=== PATIENT | male | born 1950 | race Caucasian/White ===

== ENCOUNTER → 2016-05-16 | Outpatient (CLI) | payer OTHER ==
[~2016-05-16] MED LIST: CYAN10005 PO; HYDR-4330 PO; NRN/300 PO; OMEG10007 PO
--- NOTE | 2016-05-16 11:13 | DIAGNOSTIC IMAGING REPORT ---
KUB CLINICAL HISTORY: Nephrolithiasis. COMPARISON STUDY: CT of the abdomen and pelvis December 24, 2015 and KUB January 10, 2016. FINDINGS: A few left renal calculi measure up to 6 mm. There is a punctate calculus within the upper pole of the right kidney. No ureteral calculi are identified. Pelvic calcifications represent phleboliths. There is a bone island within the medial right iliac bone. Bowel gas pattern is normal. IMPRESSION: 1. No change in left-sided nephrolithiasis with a suspected punctate right renal calculus. 2. No ureteral calculi identified. Electronically signed by: Johnson Moctezuma M.D. 05/16/2016 11:12 AM Dictated Date/Time: 05/16/2016 11:02 AM
== END | disposition home or self-care (01) ==
LOC: C.RAD 10:13
PROVIDERS: ATTEND Urology
DX: N20.0 Calculus of kidney (principal)

== ENCOUNTER → 2016-05-29 | Outpatient (CLI) | payer OTHER ==
[~2016-05-29] MED LIST changes: +ACET-1256 PO; +CIPR-255 PO; +OXYC-57 PO; +PHEN95TA14 PO
== END | disposition home or self-care (01) ==
LOC: C.PATHSPEC 16:56
PROVIDERS: ATTEND Urology
DX: R31.9 Hematuria, unspecified (principal)

== ENCOUNTER → 2016-10-30 | Outpatient (CLI) | payer OTHER ==
[~2016-10-30] MED LIST changes: -ACET-1256 PO; -CIPR-255 PO; -PHEN95TA14 PO
--- NOTE | 2016-10-30 15:42 | DIAGNOSTIC IMAGING REPORT ---
KUB CLINICAL HISTORY: Ureteral calculus. Nephrolithiasis. Hematuria. COMPARISON STUDY: 05/16/2016 FINDINGS: There is no pathologic bowel dilatation. The renal shadows are partially obscured by overlying bowel gas and fecal material. Punctate lower pole renal calculi are suspected. There is a new 5 mm left pelvic basin calcification, suspicious for a distal left ureteral calculus. IMPRESSION: 1. Bilateral nephrolithiasis 2. New 5 mm left pelvic basin calcification, suspicious for a distal left ureteral calculus Electronically signed by: Chucho Cabello M.D. 10/30/2016 3:40 PM Dictated Date/Time: 10/30/2016 3:38 PM
== END | disposition home or self-care (01) ==
LOC: C.RAD 15:21
PROVIDERS: ATTEND Urology
DX: N20.0 Calculus of kidney (principal); N20.1 Calculus of ureter

== ENCOUNTER → 2016-12-02 | Outpatient (CLI) | payer OTHER ==
--- NOTE | 2016-12-02 17:06 | DIAGNOSTIC IMAGING REPORT ---
CHEST 2 VIEWS ROUTINE CLINICAL HISTORY: Preoperative evaluation. Nephrolithiasis. COMPARISON STUDY: Chest radiograph August 14, 2015. FINDINGS: Lung volumes are normal. No pneumothorax or pleural effusion is present. Minimal left basilar opacity favors atelectasis. There is no evidence of pulmonary edema. Cardiomediastinal silhouette is normal. IMPRESSION: No acute cardiopulmonary findings. Electronically signed by: Johnson Moctezuma M.D. 12/02/2016 5:04 PM Dictated Date/Time: 12/02/2016 5:02 PM
== END | disposition home or self-care (01) ==
LOC: C.CPL 15:30
PROVIDERS: ATTEND Urology
DX: N20.0 Calculus of kidney (principal)

== ENCOUNTER → 2016-12-02 | Outpatient (CLI) | payer OTHER ==
--- NOTE | 2016-12-02 12:42 | DIAGNOSTIC IMAGING REPORT ---
KUB CLINICAL HISTORY: 66 years-old Male presenting with N20.1 Ureteral stoneRAD. TECHNIQUE: Single supine view of the abdomen was obtained. COMPARISON: 10/30/2016. FINDINGS: Mild stool burden and bowel gas degrade evaluation of the renal shadows. Allowing for this, the previously noted calculus at the lower pole of the left kidney is again demonstrated, unchanged in position. Previously noted calculus in the region of the distal left ureter is unchanged in position. The remaining calcifications in the pelvis are consistent with phleboliths when correlating to prior CT from 12/24/2015. No right renal calculi are evident radiographically. A bone island is noted in the right ilium subjacent to the sacroiliac joint. IMPRESSION: 1. Unchanged position of the distal left ureteral calculus. 2. Left nephrolithiasis. Right renal calculi not radiographically apparent possibly secondary to bowel gas and stool. Electronically signed by: Jorje Walden M.D. 12/02/2016 12:41 PM Dictated Date/Time: 12/02/2016 12:36 PM
[2016-12-02 16:41] LABS: BASO % 0.6 %; BASO ABS # 0.04 K/uL (0-0.2); COMPLETE YES; HEMATOCRIT 45.7 % (42-52); IG% 0.3 %; LYMPH % 30.1 %; LYMPH ABS # 1.89 K/uL (1.2-3.4); MEAN CELL VOLUME 90.3 fL (80-100); MEAN CORPUSCULAR HGB CONC 34.4 g/dl (32-36); MEAN PLATELET VOLUME 9.5 fL (7.4-10.4); MONO % 6.1 %; NEUT % 61.9 %; PLATELET COUNT 246 K/uL (130-400); RED BLOOD COUNT 5.06 M/uL (4.7-6.1); WHITE BLOOD COUNT 6.27 K/uL (4.8-10.8)
[2016-12-02 17:06] LABS: BLOOD UREA NITROGEN 14 mg/dl (7-18); BUN/CREATININE RATIO 14.2 (10-20); CALCIUM 9.6 mg/dl (8.5-10.1); CARBON DIOXIDE 29 mmol/L (21-32); CHLORIDE 105 mmol/L (98-107); GLUCOSE 153 mg/dl (70-99); POTASSIUM 3.9 mmol/L (3.5-5.1); SODIUM 142 mmol/L (136-145)
== END | disposition home or self-care (01) ==
LOC: C.RAD 12:18
PROVIDERS: ATTEND Urology
DX: N20.1 Calculus of ureter (principal); N20.0 Calculus of kidney

== ENCOUNTER → 2016-12-06 | Day surgery (SDC) | payer OTHER ==
[2016-12-05 08:22] VITALS: Ht 185.4 cm; Wt 79.5 kg
[~2016-12-06] VITALS: Ht 185.4 cm; Wt 79.5 kg
[~2016-12-06] MED LIST changes: +ACET-1256 PO; +ATROPINE SULFATE 0.1 MG/ML 5ML SYR IV PRN; +CIPR-255 PO; +CIPROFLOXACIN 400MG / D5W IV SCH; +DEXAMETHASONE SOD INJ 4 MG/ML VIAL ONE; +EpHEDrine SULFATE INJ 50 MG/ML AMP IV PRN; +EpHEDrine SULFATE INJ 50 MG/ML AMP ONE; +FENTANYL CITRATE INJ 50 MCG/1 ML 2 ML VIAL IV PRN; +FENTANYL CITRATE INJ 50 MCG/1 ML 2 ML VIAL ONE; -HYDR-4330 PO; +LIDOCAINE HCL 2% 2 ML VIAL (20MG/ML) ONE; +ONDANSETRON INJ 2 MG/ML 2 ML VIAL IV PRN; +ONDANSETRON INJ 2 MG/ML 2 ML VIAL ONE; +PHEN95TA14 PO; +PROPOFOL IV EMULSION 10 MG/ML 20 ML VIAL IV ONE; +SODIUM CHLORIDE 0.9% INJ 10 ML VIAL ONE
--- NOTE | 2016-12-06 12:07 | History & Physical Bridge - SC ---
H&P Re-Evaluation Bridge Note: I have examined the patient, reviewed the History & Physical and in the interval since the performance of the History & Physical I have noted the following changes of clinical significance: No changes noted
--- NOTE | 2016-12-06 12:15 | DIAGNOSTIC IMAGING REPORT ---
KUB HISTORY: Follow-up study in a patient with nephrolithiasis N20.0 [id number] COMPARISON: KUB 12/02/2016, CT 12/24/2015. FINDINGS: The bowel gas pattern is non-obstructive. There is no organomegaly. Left-sided nephrolithiasis redemonstrated. Previously noted 6 mm calcification of the left hemipelvis correlating with distal left ureteral calculus is unchanged. No new ureteral calculi identified. Multiple pelvic phleboliths redemonstrated. No pneumoperitoneum or pneumatosis. No fracture. IMPRESSION: 1. Unchanged position of distal left ureteral calculus. 2. Left-sided nephrolithiasis redemonstrated Electronically signed by: Catarino Dang M.D. 12/06/2016 12:14 PM Dictated Date/Time: 12/06/2016 12:11 PM
--- NOTE | 2016-12-06 13:28 | [facility] Post Operative Brief Note ---
Immediate Operative Summary Operative Date Dec 06, 2016. Pre-Operative Diagnosis Left Ureteral Stone Post-Operative Diagnosis Same Procedure(s) Performed Left Extracorporeal Shock Wave Lithotripsy Surgeon Dr. Marcus Rocket Engine Tester Surgeon(s) None Estimated Blood Loss None Findings distal l stone Specimens None
--- NOTE | 2016-12-06 13:30 | Discharge Instructions-SurgCtr ---
Discharge Instructions Date of Service Dec 06, 2016. Visit Reason for Visit: Stones Discharge Discharge Diagnosis / Problem: post op l eswl Discharge Goals Goal(s): Increase independence, Improve disease control Medications Stopped Medications Name(s): Stopped taking fish oil more than 3 days ago. Activity Recommendations Activity Limitations: per Instructions/Follow-up section (no driving on narcotics) Anesthesia . Post Anesthesia Instructions: If you have had General Anesthesia or IV Sedation: * Do not drive today. * Resume driving when surgeon permits. * Do not make important decisions or sign legal documents today. * Call surgeon for: 1. Temperature elevations greater than 101 degrees F. 2. Uncontrollable pain. 3. Excessive bleeding. 4. Persistent nausea and vomiting. 5. Medication intolerance (nausea, vomiting or rash). * For nausea and vomiting use only clear liquids such as: tea, soda, bouillon until nausea subsides, then gradually increase diet as tolerated. * If you have any concerns or questions, call your surgeon's office. If physician is unavailable and it is an emergency, call 911 or go to the nearest emergency room. . Diet Recommendations Home Diet: resume previous diet Procedures Procedures Performed: Left Extracorporeal Shock Wave Lithotripsy Pending Studies Studies pending at discharge: no Medical Emergencies . Who to Call and When: Medical Emergencies: If at any time you feel your situation is an emergency, please call 911 immediately. . Non-Emergent Contact Non-Emergency issues call your: Urologist Call Non-Emergent contact if: temperature is above 101 . . "Provider Documentation" section prepared by Bandar Marcus. .
--- NOTE | 2016-12-06 14:09 | Anesthesia Progress Nt - [facility] ---
Anesthesia Post Op Note Date & Time Dec 06, 2016 at 14:08 Vital Signs Pain Intensity: 0 Vital Signs Past 12 Hours Date Time Temp Pulse Resp B/P (MAP) Pulse Ox O2 Delivery O2 Flow Rate FiO2 12/06/16 13:46 36.3 61 12 127/88 97 Mask 6 12/06/16 11:07 36.3 62 18 153/85 (107) 95 Room Air Notes Mental Status: alert / awake / arousable, participated in evaluation Pt Amnestic to Procedure: Yes Nausea / Vomiting: adequately controlled Pain: adequately controlled Airway Patency, RR, SpO2: stable & adequate BP & HR: stable & adequate Hydration State: stable & adequate Anesthetic Complications: no major complications apparent
[2016-12-06 14:41] VITALS: TEMP 36.4
[2016-12-06 14:58] VITALS: BP 128/90; PULSE 72; O2SAT 95
--- NOTE | 2016-12-06 15:34 | OPERATIVE REPORT ---
DATE OF OPERATION: 12/06/2016 PREOPERATIVE DIAGNOSIS: Left distal ureteral stone. POSTOPERATIVE DIAGNOSIS: Same. PROCEDURE PERFORMED: Left ESWL. SURGEON: Dr. Marcus. ANESTHESIA: General. INDICATIONS: The patient is a 66-year-old male with a 6-7 mm distal left ureteral stone who presented for lithotripsy. DESCRIPTION OF PROCEDURE: He was taken to the operating room and placed in the supine position. The stone was localized. He had been given antibiotics and had Venodyne stockings placed. After the stone was visualized from above the head was placed above and he received 3000 shocks, approximately half at level 6. The stone was still visible towards the end of the procedure. At the end of the procedure, the patient was transferred to the recovery room in stable condition. I attest to the content of the Intraoperative Record and any orders documented therein. Any exception s are noted below.
== END | disposition home or self-care (01) ==
LOC: C.RAD1850 10:22 → X.SURG 10:22
PROVIDERS: ATTEND Urology
DX: N20.1 Calculus of ureter (principal); N20.0 Calculus of kidney; Z82.49 Family history of ischemic heart disease and other diseases of the circulatory system; Z80.9 Family history of malignant neoplasm, unspecified; Z87.891 Personal history of nicotine dependence

== ENCOUNTER → 2016-12-18 | Outpatient (CLI) | payer OTHER ==
[~2016-12-18] MED LIST changes: -ATROPINE SULFATE 0.1 MG/ML 5ML SYR IV PRN; -CIPR-255 PO; -CIPROFLOXACIN 400MG / D5W IV SCH; -DEXAMETHASONE SOD INJ 4 MG/ML VIAL ONE; -EpHEDrine SULFATE INJ 50 MG/ML AMP IV PRN; -EpHEDrine SULFATE INJ 50 MG/ML AMP ONE; -FENTANYL CITRATE INJ 50 MCG/1 ML 2 ML VIAL IV PRN; -FENTANYL CITRATE INJ 50 MCG/1 ML 2 ML VIAL ONE; -LIDOCAINE HCL 2% 2 ML VIAL (20MG/ML) ONE; -ONDANSETRON INJ 2 MG/ML 2 ML VIAL IV PRN; -ONDANSETRON INJ 2 MG/ML 2 ML VIAL ONE; -PHEN95TA14 PO; -PROPOFOL IV EMULSION 10 MG/ML 20 ML VIAL IV ONE; -SODIUM CHLORIDE 0.9% INJ 10 ML VIAL ONE
--- NOTE | 2016-12-18 13:27 | DIAGNOSTIC IMAGING REPORT ---
KUB CLINICAL HISTORY: N20.0 [id number] COMPARISON STUDY: 12/06/2016 FINDINGS: There is no pathologic bowel dilatation. There is moderate debris within the stomach. The renal shadows are largely obscured overlying bowel gas and fecal material. Punctate bilateral renal calculi are suspected. The ovoid 7 mm left pelvic basin calcification remains unchanged in position. This is previously felt to represent a distal left ureteral calculus. Other pelvic basin calcifications remain stable. IMPRESSION: Stable 7 mm left pelvic basin calcification, likely are presenting a distal left ureteral calculus. Electronically signed by: Chucho Cabello M.D. 12/18/2016 1:25 PM Dictated Date/Time: 12/18/2016 1:23 PM
== END | disposition home or self-care (01) ==
LOC: C.RAD1850 13:10
PROVIDERS: ATTEND Urology
DX: R31.0 Gross hematuria (principal); N20.1 Calculus of ureter; Z87.442 Personal history of urinary calculi

== ENCOUNTER 2016-12-23 07:51 | Day surgery (SDC) | payer OTHER ==
[2016-12-20 12:57] VITALS: BMI 23.0
[~2016-12-23] VITALS: Ht 185.4 cm; Wt 79.5 kg
[~2016-12-23 07:51] MED LIST changes: +CIPROFLOXACIN / D5W 400 MG IV SCH; +LACTATED RINGER'S 1000ML 1,000 ML IV SCH
[2016-12-23 08:18] VITALS: BP 135/92; PULSE 66; TEMP 36.5; O2SAT 93; Ht 185.4 cm; Wt 79.5 kg
[2016-12-23] MEDS ORDERED: MEPERIDINE HCL 25 MG/ML CARP IV PRN (09:15)
[2016-12-23] MEDS ORDERED: NALOXONE HCL 0.4 MG/1 ML VIAL/CARP IV PRN (09:15)
[2016-12-23] MEDS ORDERED: EpHEDrine SULFATE INJ 50 MG/ML AMP IV PRN (09:15)
[2016-12-23] MEDS ORDERED: ONDANSETRON INJ 2 MG/ML 2 ML VIAL IV PRN (09:15)
[2016-12-23] MEDS ORDERED: ATROPINE SULFATE 0.1 MG/ML 5ML SYR IV PRN (09:15)
[2016-12-23] MEDS ORDERED: PHENYLEPHRINE 100MCG/ML 5ML SYR IV PRN (09:15)
[2016-12-23] MEDS ORDERED: FENTANYL CITRATE INJ 50 MCG/1 ML 2 ML VIAL IV PRN (09:15)
[2016-12-23] MEDS ORDERED: LABETALOL HCL IV 5 MG/ML 20ML IV PRN (09:15)
[2016-12-23] MEDS ORDERED: HYDROmorphone INJ 2 MG/ML SYR/VIAL IV PRN (09:15)
[2016-12-23] MEDS ORDERED: FLUMAZENIL 0.1 MG/1 ML 10 ML VIAL IV PRN (09:15)
[2016-12-23] MEDS ORDERED: PROPOFOL IV EMULSION 10 MG/ML 20 ML VIAL IV ONE (09:49)
[2016-12-23] MEDS ORDERED: MIDAZOLAM HCL 1 MG/ML 2ML VIAL ONE (09:49)
[2016-12-23] MEDS ORDERED: LIDOCAINE HCL 2% 2 ML VIAL (20MG/ML) ONE (09:49)
[2016-12-23] MEDS ORDERED: ONDANSETRON INJ 2 MG/ML 2 ML VIAL ONE (09:49)
[2016-12-23] MEDS ORDERED: DEXAMETHASONE SOD INJ 4 MG/ML VIAL ONE (09:49)
[2016-12-23] MEDS ORDERED: FENTANYL CITRATE INJ 50 MCG/1 ML 2 ML VIAL ONE (09:49)
[2016-12-23] MEDS ORDERED: CONRAY 30% 150ML BOTTLE ONE (10:23)
[2016-12-23] MEDS ORDERED: EpHEDrine SULFATE INJ 50 MG/ML AMP ONE (11:13)
[2016-12-23] MEDS ORDERED: SODIUM CHLORIDE 0.9% 1000ML 1,000 ML IV SCH (11:21)
[2016-12-23] MEDS ORDERED: CIPR-255 PO (11:24)
[2016-12-23] MEDS ORDERED: PHEN95TA14 PO (11:24)
[2016-12-23] MEDS ORDERED: OXYC-57 PO (11:26)
--- NOTE | 2016-12-23 11:26 | Discharge Instructions ---
Discharge Instructions Date of Service Dec 23, 2016. Admission Reason for Admission: Stones Discharge Discharge Diagnosis / Problem: stones Discharge Goals Goal(s): Decrease discomfort, Improve function, Increase independence, Improve disease control, Prevent Disease Progression Activity Recommendations Activity Limitations: resume your previous activity Lifting Limitations: none Exercise/Sports Limitations: none May Resume Sexual Activity: when tolerated Shower/Bathe: no limitations Driving or Machine Use: no limitations . Instructions / Follow-Up Instructions / Follow-Up There is a string attached to the end of your stent. Please avoid pulling on this string. It will be used to remove the stent. Please come to Dr. Colunga's office on (12/26) at 10AM to have your stent removed. Discharge Diet Recommended Diet: Regular Diet Procedures Procedures Performed: Cystoscopy, Left Ureteroscopy, Laser Lithotripsy, Stent Pending Studies Studies pending at discharge: no Medical Emergencies . Who to Call and When: Medical Emergencies: If at any time you feel your situation is an emergency, please call 911 immediately. . Non-Emergent Contact Non-Emergency issues call your: Urologist Call Non-Emergent contact if: you have a fever, temperature is above 101.5, your pain is not controlled, your pain is worsening . . "Provider Documentation" section prepared by Paul Cortez. . VTE Core Measure Inpt VTE Proph given/why not?: Treatment not indicated
--- NOTE | 2016-12-23 11:29 | [facility] Operative Report ---
Operative Report Operative Date Dec 23, 2016. Pre-Operative Diagnosis Left ureteral stone Post-Operative Diagnosis same as pre-operative Procedure(s) Performed Cystoscopy, Left Ureteroscopy, Laser Lithotripsy, Stent ([id number] with a string) Surgeon Dr. Ba Colunga Rn Cardiac Cath Surgeon(s) none Estimated Blood Loss none Findings Left distal ureteral stone Specimens None Drains 6 [place] by 26 cm stent Anesthesia Gen. Complication(s) None Disposition Recovery Room / PACU (stable) Indications Symptomatically ureteral stone Description of Procedure Patient was identified in the preoperative holding area, appropriate informed consent reviewed and completed, and the patient was transported to the operating suite. Upon arrival he received appropriate preoperative antibiotics in the form of ciprofloxacin. Adequate general anesthesia was achieved, the patient was placed in dorsal lithotomy position where he was sterilely prepped and draped in standard fashion. I began the case by passing a 22 [place] cystoscope with 30 lens. Has a moderately enlarged prostate, healthy- appearing bladder with ureteral orifices in orthotopic position. I carefully cannulated the left ureteral orifice with a sensor wire and a 5 [place] open- ended catheter. The wire advanced the kidney very easily. I then withdrew the cystoscope and the catheter. I reentered the bladder alongside the wire utilizing a semirigid ureteroscope. This was easily guided into the distal left ureter. A yellow appearing calculus was visualized proximal 2 cm above the UO. There is significant dilation of the ureter in this area and the stone was not impacted. I passed a 400 laser fiber and I fragmented the stone into small fragments. I carefully irrigated all these fragments out of the ureter. After confirming no other stones within the distal ureter, I placed a 6 [place] by 26 cm double-J ureteral stent. Was a good curl in the kidney as well as the bladder. A string was left attached to the distal aspect of the stent. His bladder was decompressed and the case concluded. He was taken to the PACU in stable condition. I attest to the content of the Intraoperative Record and any orders documented therein. Any exceptions are noted below.
[2016-12-23] MEDS ORDERED: ACETAMINOPHEN 325 MG TAB PO PRN (11:30)
[2016-12-23] MEDS ORDERED: OXYCODONE/ACETAMINOPHEN 5-325 TAB PO PRN ×2 (11:30)
--- NOTE | 2016-12-23 12:12 | Anesthesiology Progress Note ---
Anesthesia Post Op Note Date & Time Dec 23, 2016 at 12:12 Vital Signs Pain Intensity: 0 Vital Signs Past 12 Hours Date Time Temp Pulse Resp B/P (MAP) Pulse Ox O2 Delivery O2 Flow Rate FiO2 12/23/16 12:05 36.2 56 16 119/85 97 Room Air 12/23/16 11:55 61 16 133/87 96 Room Air 12/23/16 11:45 65 16 136/85 (97) 94 Room Air 12/23/16 11:35 64 16 117/85 99 Oxymask 10 12/23/16 11:25 36.2 70 16 151/83 99 Oxymask 10 12/23/16 08:18 36.5 66 16 135/92 (106) 93 Room Air Notes Mental Status: alert / awake / arousable, participated in evaluation Pt Amnestic to Procedure: Yes Nausea / Vomiting: adequately controlled Pain: adequately controlled Airway Patency, RR, SpO2: stable & adequate BP & HR: stable & adequate Hydration State: stable & adequate Anesthetic Complications: no major complications apparent
[2016-12-23 12:14] VITALS: BP 159/98; PULSE 61; TEMP 36.5; O2SAT 98
[2016-12-23 12:45] VITALS: BP 139/85; PULSE 72; O2SAT 99
[2016-12-23 13:16] VITALS: BP 177/103; PULSE 86; TEMP 36.7; O2SAT 95
== END 2016-12-23 13:35 | disposition home or self-care (01) ==
LOC: C.ACU 07:51
PROVIDERS: ATTEND Urology
DX: N20.1 Calculus of ureter (principal); N20.0 Calculus of kidney; G47.33 Obstructive sleep apnea (adult) (pediatric); N40.0 Benign prostatic hyperplasia without lower urinary tract symptoms; Z87.891 Personal history of nicotine dependence; Z68.23 Body mass index [BMI] 23.0-23.9, adult; Z82.49 Family history of ischemic heart disease and other diseases of the circulatory system; Z80.9 Family history of malignant neoplasm, unspecified

== ENCOUNTER → 2017-06-03 | Day surgery (SDC) | payer OTHER ==
[2017-05-19 09:41] VITALS: BMI 23.0
[~2017-06-03] VITALS: Ht 185.4 cm; Wt 79.5 kg
[~2017-06-03] MED LIST changes: -CIPROFLOXACIN / D5W 400 MG IV SCH; -LACTATED RINGER'S 1000ML 1,000 ML IV SCH; +LIDOCAINE HCL 2% 2 ML VIAL (20MG/ML) ONE; +MIDAZOLAM HCL 1 MG/ML 2ML VIAL ONE; -NRN/300 PO; +ONDANSETRON INJ 2 MG/ML 2 ML VIAL ONE; -OXYC-57 PO; +PROPOFOL IV EMULSION 10 MG/ML 20 ML VIAL IV ONE; +SODIUM CHLORIDE 0.9% 500ML 500 ML IV ONE
[2017-06-03 08:29] VITALS: Ht 185.4 cm; Wt 79.5 kg
--- NOTE | 2017-06-03 08:48 | Endo History and Physical ---
History & Physical Date of Service: Jun 03, 2017. Chief Complaint: History of colon polyps Referring Physician: DR QUINN History of Present Illness 67 yo CM who presents for colonoscopy secondary to history of colon polyps. Past Medical History Arthritis, Other Past Surgical History Hx Cardiac Surgery: No Hx Internal Defibrillator: No Hx Pacemaker: No Hx Abdominal Surgery: No Hx of Implantable Prosthesis: No Hx Post-Op Nausea and Vomiting: No Hx Cancer Surgery: No Hx Thoracic Surgery: Yes (BRONCHOSCOPY-LUNG BIOPSY) Hx Orthopedic: No Hx Urinary Tract Surgery: Yes (CYSTOSCOPY WITH URETERAL STENTS, LITHOTRIPSY X 4 ) Family History None Social History Smoking Status: Former Smoker Hx Substance Use: No Hx Alcohol Use: Yes (OCCASIONALLY) Allergies Coded Allergies: Aspirin (Verified Adverse Reaction, Mild, NAUSEATED, 05/19/17) Current Medications Reported Home Medications Medications Dose Route/Sig Max Daily Dose Days Date Category Tylenol (Acetaminophen) 500 Mg Tab 1 Tab PO Q8 PRN 3 12/20/16 Reported Vitamin B-12 (Cyanocobalamin) 1,000 Mcg Tab 1,000 Mcg PO QAM 12/05/16 Reported [place]-3 (Fish Oil) 1 Ea Cap 1 Cap PO QAM 12/05/16 Reported Vital Signs Weight (Kilograms): 79.55 Height (Feet): 6 Height (Inches): 1 Date Time Temp Pulse Resp B/P (MAP) Pulse Ox O2 Delivery O2 Flow Rate FiO2 06/03/17 08:36 36.4 77 18 141/90 (107) 95 Room Air Physical Exam General Appearance: WD/WN, no apparent distress Respiratory/Chest: Auscultation: breath sounds normal Cardiovascular: Heart Auscultation: RRR Abdomen: Bowel Sounds: normal Inspection & Palpation: soft, non-distended, no tenderness, guarding & rebound Assessment and Plan Assessment: 67 yo CM who presents for colonoscopy secondary to history of colon polyps. Plan: Proceed with colonoscopy.
--- NOTE | 2017-06-03 09:34 | Discharge Instructions ---
Endoscopy Patient Instructions Date / Procedure(s) Performed Jun 03, 2017. Colonoscopy Allergy Information Coded Allergies: Aspirin (Verified Adverse Reaction, Mild, NAUSEATED, 05/19/17) Discharge Date / Findings Jun 03, 2017. Colon polyp Diverticulosis Internal hemorrhoids Medication Instructions OK to resume all medications today as prescribed Reported Home Medications Medications Dose Route/Sig Max Daily Dose Days Date Category Tylenol (Acetaminophen) 500 Mg Tab 1 Tab PO Q8 PRN 3 12/20/16 Reported Vitamin B-12 (Cyanocobalamin) 1,000 Mcg Tab 1,000 Mcg PO QAM 12/05/16 Reported [place]-3 (Fish Oil) 1 Ea Cap 1 Cap PO QAM 12/05/16 Reported Provider Instructions Activity Restrictions - No exercising or heavy lifting for 24 hours. - Do not drink alcohol the day of the procedure. - Do not drive a car or operate machinery until the day after the procedure. - Do not make any important decisions or sign important papers in 24 hours after the procedure. Following Day: - Return to full activity which may include returning to work/school. Diet Start your diet with liquids and light foods (jello, soup, juice, toast). Then eat your usual diet if not nauseated. Treatment For Common After Affects For mild abdominal pain, bloating, or excessive gas: - Rest - Eat lightly - Lie on right side Follow-Up Information Follow-up with DR QUINN as scheduled Anesthesia Information What You Should Know You have had a procedure that required some medicine to reduce anxiety and discomfort. This treatment is called moderate sedation. After receiving the treatment, you may be sleepy, but you will be able to breathe on your own. The effects of the treatment may last for several hours. Follow these instructions along with Activity/Diet recommendations noted above: * Do NOT do anything where dizziness or clumsiness would be dangerous. * Rest quietly at home today, then you can be up and about tomorrow. * Have a responsible person stay with you the rest of today. * You may have had an I.V. today. If so, you may take the dressing off later today. Recommendations Call your doctor if: * Trouble breathing * Continuous vomiting for more than 24 hours * Temperature above 101 degrees * Severe abdominal pain or bloating * Pain not relieved by pain medicine ordered * There is increased drainage or redness from any incision * A large amount of rectal bleeding greater than 2-3 tablespoons. (If you had a polyp/s removed or have hemorrhoids, a small amount of blood - from the rectum is to be expected.) * You have any unanswered questions or concerns. IN THE EVENT OF A SERIOUS EMERGENCY, GO TO THE NEAREST EMERGENCY ROOM Your discharge instructions were prepared by provider Erik Harden. Patient Instructions Signature Page Kraig Carranza Patient (or Guardian) Signature/Date: I have read and understand the instructions given to me by my caregivers. Caregiver/RN/Doctor Signature/Date: The above-named patient and/or guardian has received patient instructions on this date. + Original Patient Signature Page (only) stays with chart. Please make copy for patient.
[2017-06-03 10:25] VITALS: BP 126/94; PULSE 74; O2SAT 95
--- NOTE | 2017-06-03 10:57 | Anesthesiology Progress Note ---
Anesthesia Post Op Note Date & Time Jun 03, 2017 at 10:57 Vital Signs Pain Intensity: 0 Vital Signs Past 12 Hours Date Time Temp Pulse Resp B/P (MAP) Pulse Ox O2 Delivery O2 Flow Rate FiO2 06/03/17 10:25 74 18 126/94 (105) 95 Room Air 06/03/17 10:07 73 18 134/89 (104) 95 Nasal Cannula 2 06/03/17 09:52 79 18 117/89 (98) 93 Room Air 06/03/17 09:35 77 18 116/83 (94) 95 Room Air 06/03/17 08:36 36.4 77 18 141/90 (107) 95 Room Air Notes Mental Status: alert / awake / arousable, participated in evaluation Pt Amnestic to Procedure: Yes Nausea / Vomiting: adequately controlled Pain: adequately controlled Airway Patency, RR, SpO2: stable & adequate BP & HR: stable & adequate Hydration State: stable & adequate Anesthetic Complications: no major complications apparent
--- NOTE | 2017-06-03 16:39 | GI REPORT ---
Procedure Date: 06/03/2017 8:31 AM Procedure: Colonoscopy Indications: High risk colon cancer surveillance: Personal history of colonic polyps Medicines: Monitored Anesthesia Care Complications: No immediate complications. Estimated Blood Loss: Estimated blood loss: none. Procedure: Pre-Anesthesia Assessment: - Prior to the procedure, a History and Physical was performed, and patient medications and allergies were reviewed. The patient's tolerance of previous anesthesia was also reviewed. The risks and benefits of the procedure and the sedation options and risks were discussed with the patient. All questions were answered, and informed consent was obtained. Prior Anticoagulants: The patient has taken no previous anticoagulant or antiplatelet agents. ASA Grade Assessment: II - A patient with mild systemic disease. After reviewing the risks and benefits, the patient was deemed in satisfactory condition to undergo the procedure. After I obtained informed consent, the scope was passed under direct vision. Throughout the procedure, the patient's blood pressure, pulse, and oxygen saturations were monitored continuously. The scope was introduced through the anus and advanced to the terminal ileum. The colonoscopy was performed without difficulty. The patient tolerated the procedure well. The quality of the bowel preparation was good. The terminal ileum was photographed. Findings: The perianal and digital rectal examinations were normal. A 8 mm polyp was found in the sigmoid colon. The polyp was pedunculated. The polyp was removed with a hot snare. Resection and retrieval were complete. Multiple small-mouthed diverticula were found in the sigmoid colon. Non-bleeding internal hemorrhoids were found during retroflexion. The hemorrhoids were small. Impression: - One 8 mm polyp in the sigmoid colon, removed with a hot snare. Resected and retrieved. - Diverticulosis in the sigmoid colon. - Non-bleeding internal hemorrhoids. Recommendation: - Resume previous diet. - Continue present medications. - Repeat colonoscopy for surveillance based on pathology results. - Return to primary care physician as previously scheduled. Erik Harden DO 06/03/2017 9:44:51 AM This report has been signed electronically. Note Initiated On: 06/03/2017 8:31 AM I attest to the content of the Intraoperative Record and orders documented therein, exceptions below
== END | disposition home or self-care (01) ==
LOC: C.GI 08:12
PROVIDERS: ATTEND Internal Medicine
DX: Z12.11 Encounter for screening for malignant neoplasm of colon (principal); K63.5 Polyp of colon; K57.30 Diverticulosis of large intestine without perforation or abscess without bleeding; K64.8 Other hemorrhoids; Z86.010 Personal history of colon polyps; M19.90 Unspecified osteoarthritis, unspecified site; G47.33 Obstructive sleep apnea (adult) (pediatric); Z79.82 Long term (current) use of aspirin; Z98.890 Other specified postprocedural states; Z87.891 Personal history of nicotine dependence; Z88.6 Allergy status to analgesic agent

== ENCOUNTER 2023-07-28 11:35 | Inpatient (IN) ==
--- NOTE | 2023-07-28 12:11 | Emergency Department Note ---
Impression & Plan Renal colic on left side, Left sided abdominal pain, Hydroureteronephrosis ED Provider Note NAME: CARLYLE MAGDALENO AGE: 73 SEX: M : 1950 ARRIVES VIA: Walk-In INFORMANT: Patient, Patient's , triage note ED PROVIDER(S): Jluis Kearney MD CHIEF COMPLAINT: Abdominal pain MEDICAL DECISION MAKING: Patient presented due to concern for abdominal pain in the setting of recent stent extraction and stent placement and removal. IV was established and blood work was obtained. Patient was ordered IV morphine and IV Zofran. IV fluids also ordered Blood work shows a normal white count H&H and platelet count kidney function is unremarkable with normal electrolytes and LFTs. Urinalysis shows blood no obvious signs of infection negative for bacteria and nitrites. Patient was ordered IV Toradol. Patient CT abdomen pelvis does show a moderate left hydroureteronephrosis with notable fragments of the UVJ with an additional 7 mm distal left ureteral calculus approximate 2 cm from the UVJ. No right-sided hydro or calculi. Left retroperitoneal multiloculated fluid collection likely a urinoma. Given these findings I did speak with the on-call urologist Dr. Humphries who was initially concerned about potentially needing to drain the urinoma. After further discussion and review he stated the patient's primary urologist is on service tomorrow and believes it is reasonable to keep the patient in the hospital here. I did speak with Dr. Moctezuma via [place] text who stated that Mane Morgan PA-C is capable of draining these. I did speak the on-call hospital service Dev Up PA-C and Dr. Drew. Patient was informed of the plan of care and he and are comfortable plan of care. Patient's pain is improved. Dr. Humphries did asked that the patient receive a dose of antibiotics and cultures were also obtained. Patient was admitted to the medicine service. Discussion w/ other healthcare providers: Dr. Humphries with urology Dev Up PA-C and Dr. Drew inpatient medicine service Prior /Outside records reviewed: I reviewed an operative report from July [address] Colunga. Patient did have a cystoscopy ureteral nephroscopy retrograde pyelogram laser obstruction extraction of stone insertion of stent catheter. Differential diagnosis: Renal colic, UTI, pyelonephritis, appendicitis, diverticulitis, strain, sprain, fracture among others were considered. Diagnostics, as interpreted by me: ECG: None Cardiac monitoring: An order was placed for continuous cardiac monitoring. The monitor shows a rate of 85 with sinus rhythm. Patient was placed on pulse oximetry Medical decision rules: None Imaging studies: I informally interpreted the patient's CT abdomen pelvis which does show left- sided hydronephrosis with formal report to follow. HPI: Patient presents due to concern for worsening left lower quadrant pain. Patient states that he did have a recent stent extraction and stent procedure completed on Friday with Dr. Colunga and subsequent stent removal completed on . The patient states that he was trying to stop taking his oxycodone and felt quite well last evening did not take it but when he woke up this morning he has had pain that has not improved even after taking his home oxycodone and Tylenol. Patient is had nausea but no vomiting. The patient is felt sweaty when he has bouts of pain. The patient denies any fevers or chills. Patient is without chest pain or shortness of breath. Patient states that he did pass 2 small clots yesterday he states that his urine has been fairly clean this morning. Patient does have very history of prostate CA known for about the last 5 years but not requiring any treatment at this time. Patient states that he does have some difficulty with urination but this is chronic and at his baseline. Patient states that he did have a lithotripsy procedure completed about a month and a half prior to these procedures last week. PAST MEDICAL HISTORY: See Below PAST SURGICAL HISTORY: See Below SOCIAL HISTORY: See Below HOME MEDICATIONS: See Below ALLERGIES: See Below VITALS: See Below PHYSICAL EXAMINATION: GENERAL: NAD, non-toxic. EYE EXAM: Normal conjunctiva. PERRL, no anisocoria and EOM's grossly intact w/o pain. OROPHARYNX: Moist mucus membranes, grossly normal dentition. NECK: Trachea midline, no stridor. LUNGS: Clear to auscultation. Normal chest wall mechanics. HEART: NSR, no MRG. ABDOMEN: Abdomen soft, left lower quadrant pain but not peritonitic, no masses, no rebound or guarding. BACK: Left-sided CVA TTP. SKIN: No rashes and no bruising. UPPER EXTREMITIES: Upper extremities are grossly normal. LOWER EXTREMITIES: Grossly normal, no edema. NEURO EXAM: A&O x3, cranial nerves II-XII grossly intact, normal speech, moves all 4 extremities. Past Med/Surg History Problem List (Updated 07/28/23 @ 18:24 by Jluis Kearney MD) Hydroureteronephrosis (Acute) Left sided abdominal pain (Acute) Renal colic on left side (Acute) Retroperitoneal fluid collection Hydronephrosis, left Left ureteral stone Nasal septal deviation Encounter for pre-operative examination Hyperglycemia Atrial premature complex (Acute) Degeneration of cervical intervertebral disc (Acute) Diverticulosis (Acute) Hypertension (Acute) Internal hemorrhoids (Acute) Macular edema of right eye (Acute) Malignant melanoma of skin (Acute) Neoplasm of prostate, malignant (Acute) Nephrolithiasis (Acute) Peripheral neuropathy (Acute) Ureteral stone (Acute) Prostate cancer (Chronic) Inflammatory polyps (Acute) Internal hemorrhoid (Acute) Elevated PSA (Acute) LPRD (laryngopharyngeal reflux disease) Chronic cough Sciatica Coronary artery disease Arthritis (Acute) Myocardial infarction ~2019 Medical History Shingles dx 06/10/23 - medication and prednisone tx completed. Pt feeling better, almost healed/dark area/no seeping. Left groin / lower abdomen are and inside left bicep area. Hx: recurrent pneumonia Hx of bronchitis Sarcoidosis no current issues, has not "flare up in years" History of anesthesia reaction PTSD from being in [place], has to calm him down, very difficult for him to snap out of it. History of COVID-19 01/2021- no hosp; resolved COPD (chronic obstructive pulmonary disease) mild Retinal micro-aneurysm retina specialist routine [place] 07/07/23 - no changes. Ocular migraine hx, most recent 2 yr ago. Prostate cancer dx 2019- monitoring H/o Lyme disease 2014 H/O carpal tunnel syndrome H/O acute sinusitis Peripheral neuropathy "bilaterally from shins down " Nephrolithiasis Malignant melanoma removed from middle of back - 2016 Macular degeneration of right eye Hypertension Diverticulosis Degeneration of cervical intervertebral disc Atrial premature complex follows w/ Dr Palomo Surgical History Hx of cardiac catheterization ~2019- after [place]; no stents S/P bronchoscopy H/O lithotripsy & 06/06/23. H/O colonoscopy Family History Mother , age 92 Heart disease Father , age 91 Heart disease Sister Lymphoma Sister Endometrial cancer Migraine headache Cancer Son No problems noted. Son No problems noted. Aunt Bone cancer Aunt , "had some kind of cancer / unsure of the kind " No problems noted. Social History Smoking Status: Former smoker Tobacco Type: Cigarettes Smoking End Date: 50 years ago; Second Hand Exposure: Yes; Do You Dip or Chew Tobacco: No; Tobacco Cessation Education Requested by Patient: No Hx Alcohol Use: Yes Alcohol type: beer and wine Hx Substance Use: No Preferred Language: Frisian Communication Ability: Effective Visual Impairment: Limited Hearing Ability: Hard of Hearing Pipe Changer Required: No Beliefs That Will Affect Care: None marital status: Current Living Situation: Spouse current occupational status: retired current occupation: retired from manufacturing Other Information That Helps Us Care for You: No Feels Safe at Home: Yes Safety Concerns: Feels Safe At This Time Assistive Devices: Glasses and Hearing Aid - Bilateral Allergies Allergies Allergy/AdvReac Type Severity Reaction Status Date / Time aspirin AdvReac Mild "upsets Unverified 07/28/23 13:12 digestive system after awhile" Home Meds Home Medications Medication Instructions Recorded Confirmed atorvastatin 40 mg tablet 40 mg PO HS 02/12/19 07/28/23 metoprolol succinate 25 mg 50 mg PO QPM 05/15/22 07/28/23 tablet,extended release 24 hr acetaminophen 500 mg tablet 1,000 mg PO DIRECTED PRN Pain 07/28/23 07/28/23 Previous Rx's Medication Instructions Recorded nitroglycerin 0.4 mg sublingual 0.4 mg sublingual Q5M PRN chest 02/12/19 tablet pain #30 tabs oxycodone 5 mg tablet 5 mg PO Q8H PRN pain #15 tabs 07/22/23 Results & Data (ED) Vital Signs Vital Signs - 24 hr 07/28/23 11:44 07/28/23 11:57 07/28/23 12:25 Temperature 36.4 C L 37.0 C Temperature Source Temporal Artery Scan Oral Pulse Rate 83 Pulse Rate [Apical] 87 Pulse Rhythm Regular Pulse Strength Normal Respiratory Rate 16 18 Respiratory Effort / Characteristics Non-Labored Spontaneous Non-Labored Spontaneous Respiratory Depth Normal Respiratory Pattern Regular Regular Blood Pressure 129/79 Blood Pressure [Right Arm] 133/91 Blood Pressure Mean 95 Blood Pressure Mean [Right Arm] 105 Blood Pressure Position Sitting Blood Pressure Position [Right Arm] Semi-fowlers Pulse Oximetry 93 92 92 Oxygen Delivery Method Room Air Room Air Room Air Oxygen Flow Rate Sepsis Recent Fever Within 48 Hours No Sepsis New/Unexplained Change in Mental Status No Sepsis Action Taken by Nursing No Action Required 07/28/23 12:44 07/28/23 15:27 Temperature Temperature Source Pulse Rate 77 Pulse Rate [Apical] 79 Pulse Rhythm Pulse Strength Respiratory Rate 16 Respiratory Effort / Characteristics Non-Labored Respiratory Depth Normal Respiratory Pattern Regular Blood Pressure Blood Pressure [Right Arm] 129/74 Blood Pressure Mean Blood Pressure Mean [Right Arm] 92 Blood Pressure Position Blood Pressure Position [Right Arm] Semi-fowlers Pulse Oximetry 93 Oxygen Delivery Method Nasal Cannula Oxygen Flow Rate 1 Sepsis Recent Fever Within 48 Hours Sepsis New/Unexplained Change in Mental Status Sepsis Action Taken by Halfway Medications Current Medication List: was personally reviewed by me Laboratory Data Attestation: I reviewed the patient's lab results. 07/28/23 12:14 07/28/23 12:14 Lab Results 07/28/23 07/28/23 07/28/23 Range/Units 12:14 12:32 12:45 WBC 10.27 (4.8-10.8) K/ul RBC 4.93 (4.70-6.10) M/uL Hgb 15.0 (14.0-18.0) g/dl POC Hgb 15.3 (14.0-18.0) g/dl Hct 44.2 (42.0-52.0) % POC Hct 45 (42-52) % MCV 89.7 (80.0-100.0) fL MCH 30.4 (25.0-34.0) pg MCHC 33.9 (32.0-36.0) g/dL RDW Std Deviation 43.8 (36.4-46.3) fL RDW Coeff of Ciro 13.2 (11.5-14.5) % Plt Count 262 (130-400) K/uL MPV 9.1 L (9.4-12.4) fL Immature Gran % (Auto) 0.6 % Neut % (Auto) 72.7 % Lymph % (Auto) 15.1 % Griggs % (Auto) 11.0 % Eos % (Auto) 0.2 % Baso % (Auto) 0.4 % Neut # (Auto) 7.47 H (1.40-6.50) K/uL Lymph # (Auto) 1.55 (1.20-3.40) K/uL Griggs # (Auto) 1.13 H (0.11-0.59) K/uL Eos # (Auto) 0.02 (0.00-0.50) K/uL Baso # (Auto) 0.04 (0.00-0.20) K/uL Immature Gran # (Auto) 0.06 (0.01-0.20) K/uL POC Sodium 136 (135-144) mmol/L Sodium 135 L (136-145) mmol/L POC Potassium 4.3 (3.3-5.0) mmol/L Potassium 4.3 (3.5-5.1) mmol/L POC Chloride 101 (101-112) mmol/L Chloride 102 (98-107) mmol/L Carbon Dioxide 26 (21-32) mmol/L POC Total CO2 25 (24-31) mmol/L Anion Gap 7 (3-11) POC Anion Gap 15.0 L (16-25) mmol/L POC BUN 16 (7-18) mg/dl BUN 17 (6-23) mg/dl Creatinine 1.16 (0.6-1.4) mg/dl POC Creatinine 1.2 (0.6-1.3) mg/dl Est Cr Clr Drug Dosing 63.1 ml/min Est GFR ( Amer) 71.5 ml/min Est GFR (Non-Af Amer) 61.7 ml/min BUN/Creatinine Ratio 14.7 (10-20) Glucose 105 H (70-99(Fasting)) mg/dl POC Glucose (other) 109 H (70-99) mg/dl Calcium 9.4 (8.6-10.3) mg/dl POC Ioniz Calcium Josue 1.20 (1.12-1.32) mmol/l Total Bilirubin 0.8 (0.2-1.0) mg/dl AST 11 L (13-39) U/L ALT 11 (7-52) U/L Alkaline Phosphatase 75 (34-104) U/L Total Protein 7.2 (6.0-8.3) gm/dl Albumin 3.8 (3.4-5.0) gm/dl Globulin 3.4 (2.5-4.0) gm/dl Albumin/Globulin Ratio 1.1 (0.9-2) Lipase 18 (11-82) U/L Urine Color Dark Yellow Urine Appearance Clear (Clear) Urine pH 5.5 (4.5-7.5) Ur Specific [place] 1.029 (1.000-1.030) Urine Protein 1+ H (Negative) Urine Glucose (UA) Negative (Negative) Urine Ketones Negative (Negative) Urine Blood 2+ H (Negative) Urine Nitrite Negative (Negative) Urine Bilirubin Negative (Negative) Urine Urobilinogen Negative (Negative) Ur Leukocyte Esterase 1+ H (Negative) Urine WBC (Auto) 21-50 H (0-5) /hpf Urine RBC (Auto) >20 H (0-2) /hpf U Hyaline Cast (Auto) 3-5 H (0-2) /lpf U Epithel Cells (Auto) 0-2 (0-2) /hpf Urine Bacteria (Auto) None Seen (None Seen) Administered Medications Parenteral Electrolytes (Plasma-Lyte A Ph 7.4) 1,000 mls @ 125 mls/hr IV .Q8H BRANDO Stop: 08/27/23 16:14 Last Admin: 07/28/23 17:00 Dose: 125 mls/hr Documented By: SLAVA Discontinued Medications Sodium Chloride (Nss) 1,000 mls @ 999 mls/hr IV .Q1H1M STA Stop: 07/28/23 13:08 Last Infusion: 07/28/23 15:04 Dose: Infused Documented By: Admin: 07/28/23 13:07 Dose: 999 mls/hr Documented By: SLAVA Ceftriaxone Sodium (Rocephin) 2,000 mg in 50 mls @ 100 mls/hr IV NOW STA Stop: 07/28/23 15:21 Last Infusion: 07/28/23 16:08 Dose: Infused Documented By: Admin: 07/28/23 15:41 Dose: 100 mls/hr Documented By: LILY Ioversol (Optiray 320 100ml) 94 ml IV ONCE ONE Stop: 07/28/23 12:56 Last Admin: 07/28/23 12:55 Dose: 94 ml Documented By: NICHOLAS Ketorolac Tromethamine (Ketorolac Tromethamine 15 Mg/Ml Vial) 10 mg IV NOW ONE Stop: 07/28/23 13:12 Last Admin: 07/28/23 14:01 Dose: 10 mg Documented By: LILY Morphine Sulfate (Morphine Sulfate 4 Mg/Ml 1 Ml Carp\\Vial) 4 mg IV NOW STA Stop: 07/28/23 12:09 Last Admin: 07/28/23 13:07 Dose: 4 mg Documented By: SLAVA Ondansetron HCl (Ondansetron Inj 2 Mg/Ml 2 Ml Vial) 4 mg IV NOW STA Stop: 07/28/23 12:09 Last Admin: 07/28/23 13:09 Dose: 4 mg Documented By: SLAVA Imaging Data Radiologist's Impression: Abdomen/Pelvis CT 07/28/23 12:08 CT OF THE ABDOMEN AND PELVIS WITH CONTRAST CLINICAL HISTORY: LLQ pain; recent stone extraction and stent removal COMPARISON STUDY: CT of the abdomen and pelvis May 23, 2023. KUB July 22, 2023. TECHNIQUE: Following IV administration of 94 mL of Optiray, axial images of the abdomen and pelvis were obtained from the lung bases to the proximal femurs. Images were reviewed in the axial, sagittal, and coronal planes. IV contrast was administered without complication. Automated exposure control was utilized for the study. A dose lowering technique was utilized adhering to the principles of ALARA. CT DOSE: 962.86 mGy.cm FINDINGS: Lung bases are unremarkable. No pneumatosis, free air or portal venous gas is present. Left perinephric is present. Moderate left hydroureteronephrosis is noted. Multiple clustered distal left ureteral calculi/fragments measure up to 3 mm. A 7 mm distal left ureteral calculus 2 cm proximal to the ureterovesical junction is present. Wall thickening of the left ureter is noted. Multiple left renal calculi measure up to 5 mm. Several small right renal calculi are present. There is no right hydronephrosis. No right ureteral calculi are present. There is a elongated multiloculated left retroperitoneal fluid collection, likely within the retro-renal space which extends from the level of the kidney to the pelvis. This collection measures 7.8 x 2.5 cm in the transverse by AP dimensions respectively. This collection is posterior to the ureter and anterior to the left psoas and iliopsoas muscles. Mild peripheral enhancement is present. There is no extraluminal gas. Bladder wall thickening is again noted. The prostate is markedly enlarged, measuring 8 cm in transverse dimension. There is no evidence for a bowel obstruction. Liver, spleen, adrenal glands and pancreas are unremarkable. There is no biliary or pancreatic ductal dilatation. The appendix is normal. IMPRESSION: 1. Moderate left hydroureteronephrosis with left ureteral wall thickening. Multiple calculi/calculi fragments at the left ureterovesical junction measuring up to 3 mm. Additional 7 mm distal left ureteral calculus 2 cm proximal to the ureterovesical junction. Bilateral nephrolithiasis. No right ureteral calculi. No right hydronephrosis. 2. Left retroperitoneal multiloculated fluid collection with minimal peripheral enhancement extending from the level of the kidney to the pelvis, measuring 7.8 x 2.5 cm in the transverse by AP dimensions respectively. This collection abuts the left ureter and left psoas/iliopsoas muscles. This favors a urinoma. 3. Markedly enlarged prostate. ACT 112: Negative or not required by law. Electronically signed by: Johnson Moctezuma M.D. 07/28/2023 1:18 PM Discharge Plan Visit Data Chief Complaint: Abdominal Pain Stated Complaint: PAIN AFTER PROCEDURE FOR KIDNEY STONES ED Provider: Jluis Kearney Discharge Problem: Renal colic on left side, Left sided abdominal pain, Hydroureteronephrosis Patient Disposition: Admitted As Inpatient Discharge Instructions Interventions: ED Discharge Assessment Last Done: 07/28/23 17:19
[2023-07-28 12:43] LABS: Basophils # (auto) 0.04 K/uL (0.00-0.20); Basophils % (auto) 0.4 %; Eosinophils # (auto) 0.02 K/uL (0.00-0.50); Eosinophils % (auto) 0.2 %; Hematocrit (blood only) 44.2 % (42.0-52.0); Immature Granulocytes # (auto) 0.06 K/uL (0.01-0.20); Immature Granulocytes % (auto) 0.6 %; Lymphocytes # (auto) 1.55 K/uL (1.20-3.40); Lymphocytes % (auto) 15.1 %; Mean Corpuscular Hemoglobin 30.4 pg (25.0-34.0); Mean Corpuscular Hgb Conc 33.9 g/dL (32.0-36.0); Mean Corpuscular Volume 89.7 fL (80.0-100.0); Mean Platelet Volume 9.1 fL (9.4-12.4); Monocytes # (auto) 1.13 K/uL (0.11-0.59); Neutrophils # (auto) 7.47 K/uL (1.40-6.50); Neutrophils % (auto) 72.7 %; Platelet Count 262 K/uL (130-400); RDW Coefficient of Variation 13.2 % (11.5-14.5); RDW Standard Deviation 43.8 fL (36.4-46.3); Red Blood Count 4.93 M/uL (4.70-6.10); White Blood Count 10.27 K/ul (4.8-10.8)
[2023-07-28 12:47] LABS: iSTAT Creatinine 1.2 mg/dl (0.6-1.3); iSTAT Hemoglobin 15.3 g/dl (14.0-18.0); iSTAT Ionized Calcium 1.2 mmol/l (1.12-1.32); iSTAT Potassium 4.3 mmol/L (3.3-5.0)
[2023-07-28] MEDS: OPTIRAY 320 100ml IV ONE (12:55)
[2023-07-28 12:59] LABS: Albumin Globulin Ratio 1.1 (0.9-2); Albumin Level 3.8 gm/dl (3.4-5.0); BUN Creatinine Ratio 14.7 (10-20); Bilirubin,Total 0.8 mg/dl (0.2-1.0); Calcium 9.4 mg/dl (8.6-10.3); Creatinine Clr Calc Pharmacy 63.1 ml/min; Est GFR (African American) 71.5 ml/min; Est GFR (Non-African American) 61.7 ml/min; Globulin 3.4 gm/dl (2.5-4.0); Potassium 4.3 mmol/L (3.5-5.1); Total Protein 7.2 gm/dl (6.0-8.3)
[2023-07-28 13:02] LABS: Appearance Urine Clear (Clear); Bacteria Urine Automated None Seen (None Seen); Bilirubin Urine Negative (Negative); Blood Urine 2+ (Negative); Color Urine Dark Yellow; Epithelial Cell Urine Auto 0-2 /hpf (0-2); Glucose Urine UA Negative (Negative); Ketones Urine Negative (Negative); Leukocyte Esterase Urine 1+ (Negative); Nitrite Urine Negative (Negative); Protein Urine 1+ (Negative); RBC Urine Automated >20 /hpf (0-2); Specific Gravity Urine 1.029 (1.000-1.030); Urobilinogen Urine Negative (Negative); WBC Urine Automated 21-50 /hpf (0-5); pH Urine 5.5 (4.5-7.5)
[2023-07-28] MEDS: SODIUM CHLORIDE 0.9% 1,000 ML IV STA (13:07)
[2023-07-28] MEDS: MoRPHine SULFATE 4 MG/ML 1 ML CARP\\VIAL IV STA (13:07)
[2023-07-28] MEDS: ONDANSETRON INJ 2 MG/ML 2 ML VIAL IV STA (13:09)
--- NOTE | 2023-07-28 13:20 | CT Scan Report ---
CT OF THE ABDOMEN AND PELVIS WITH CONTRAST CLINICAL HISTORY: LLQ pain; recent stone extraction and stent removal COMPARISON STUDY: CT of the abdomen and pelvis May 23, 2023. KUB July 22, 2023. TECHNIQUE: Following IV administration of 94 mL of Optiray, axial images of the abdomen and pelvis we re obtained from the lung bases to the proximal femurs. Images were reviewed in the axial, sagittal, and coronal planes. IV contrast was administered without complication. Automated exposure control wa s utilized for the study. A dose lowering technique was utilized adhering to the principles of ALARA . CT DOSE: 962.86 mGy.cm FINDINGS: Lung bases are unremarkable. No pneumatosis, free air or portal venous gas is present. Left perinephric is present. Moderate left hydroureteronephrosis is noted. Multiple clustered distal left ureteral calculi/fragments measure up to 3 mm. A 7 mm distal left ureteral calculus 2 cm proximal to the ureterovesical junction is present. Wall thickening of the left ureter is noted. Multiple left r enal calculi measure up to 5 mm. Several small right renal calculi are present. There is no right hyd ronephrosis. No right ureteral calculi are present. There is a elongated multiloculated left retroper itoneal fluid collection, likely within the retro-renal space which extends from the level of the kid christina to the pelvis. This collection measures 7.8 x 2.5 cm in the transverse by AP dimensions respectiv mariluz. This collection is posterior to the ureter and anterior to the left psoas and iliopsoas muscles. Mild peripheral enhancement is present. There is no extraluminal gas. Bladder wall thickening is aga in noted. The prostate is markedly enlarged, measuring 8 cm in transverse dimension. There is no evid ence for a bowel obstruction. Liver, spleen, adrenal glands and pancreas are unremarkable. There is n o biliary or pancreatic ductal dilatation. The appendix is normal. IMPRESSION: 1. Moderate left hydroureteronephrosis with left ureteral wall thickening. Multiple calculi/calculi f ragments at the left ureterovesical junction measuring up to 3 mm. Additional 7 mm distal left ureter al calculus 2 cm proximal to the ureterovesical junction. Bilateral nephrolithiasis. No right uretera l calculi. No right hydronephrosis. 2. Left retroperitoneal multiloculated fluid collection with minimal peripheral enhancement extending from the level of the kidney to the pelvis, measuring 7.8 x 2.5 cm in the transverse by AP dimension s respectively. This collection abuts the left ureter and left psoas/iliopsoas muscles. This favors a urinoma. 3. Markedly enlarged prostate. ACT 112: Negative or not required by law. Electronically signed by: Johnson Moctezuma M.D. 07/28/2023 1:18 PM
[2023-07-28] MEDS: KETOROLAC TROMETHAMINE 15 MG/ML VIAL IV ONE (14:01)
[2023-07-28] MEDS: cefTRIAXone SODIUM 2,000 MG/50 ML BAG IV STA (15:41)
--- NOTE | 2023-07-28 15:42 | History & Physical Report ---
Date of Service July 28, 2023 Assessment & Plan (1) Left ureteral stone: Plan: Left ureteral calculi, hydronephrosis, associated left multiloculated fluid collection - CTA/P shows left hydroureteronephrosis, multiple calculi fragments up to 3 mm in addition to a 7 mm distal left ureteral calculus, and a left retroperitoneal multiloculated fluid collection with minimal enhancement suggestive of a urinoma. Other than 2 small clots in the urine patient denies hematuria, and hemoglobin is 15.0 on admission, which is uptrending from his prior measurement of 14.8. Case was reviewed with urology while in the ER. Patient was recommended for cystoscopy on 07/29/2023; however if he becomes febrile/toxic/septic appearing then this can be moved up for source control. Additionally case was discussed with IR, and urinoma while transfer was transiently discussed was felt that this can be accessed by IR here if fluid is refractory to stent placement. N.p.o. IV FM CBC/BMP daily Continue Rocephin. No history of resistant organisms Hemoglobin stable Continue multimodal pain control with Tylenol first-line Toradol second-line, morphine for breakthrough Urology consulted. IR following. If signs of sepsis developing including but not limited to rigors, chills, hypotension, tachycardia, rising white count or clinical deterioration notify urology as we will need expedited source control (2) Hydronephrosis, left: (3) Myocardial infarction: Plan: CAD without ischemic symptoms Patient with angina in 2018 for chest pain, that showed distal septal artery disease but nonobstructive disease in major vessels. Did not require stent and patient has been treated medically without angina since Metoprolol continued Statin continued Last echo 04/2023: EF 60-65%, no wall motion abnormalities, mild TR, trivial pericardial effusion, mild aortic root dilation 4.1 cm. No recent anginal symptoms. Patient had discontinued aspirin several years ago on/benefits discussion with his supervisor food checkers and cashiers. No history of stents (4) COPD (chronic obstructive pulmonary disease): Plan: No acute events No acute exacerbation/wheezing No acute change in management (5) Shingles: Plan: Herpes zoster History of shingles 06/2023 with rash atLeft upper extremity. Was treated with Valtrex and prednisone (6) Hypertension: Plan: Essential hypertension Normotensive on admission Continue metoprolol Plan DVT prophylaxis: SCDs pending surgical evaluation Diet: N.p.o. Disposition: Medical/surgical CODE STATUS: Full code History of Present Illness Primary Care Provider: Meliton Galloway MD Bertha is a 73-year-old male with a recent history of cystoscopy/uronephrostomy/retrograde pyelogram and left laser stone destruction and extraction 07/22/2023, shingles, essential hypertension, CAD without angina/stents who presents to the ER 6 days after left stone management/stent placement with subsequent removal with worsening left lower quadrant pain. Patient has been weaning narcotics but has continued to have persistent pain in his left lower quadrant. He has not had fever, chills but has had sweats. No chest pain/chest pressure/shortness of breath. ER evaluation does not show leukocytosis, and patient does not have an STAN with admitting creatinine of 1.16. Urine is with blood/leukocyte esterase. Chuck is seen at the bedside. He reports that he has had intermittent pain since his stent/stone procedure, but this has not resolved and he is worse in the last 24 hours. He denies fevers but notes when he have strong spasm of pain he does get sweaty. He has not any chest pain, chest pressure, or shortness of breath. He does have a distant history of NSTEMI in 2018 for which she had a cardiac catheterization which showed clear main cardiac vessels and a distal small vessel occlusion for which she was medically managed on a statin, metoprolol and aspirin. He followed up with his supervisor food checkers and cashiers and after several years on shared decision making was felt to be safe to discontinue his aspirin. He has not had any anginal symptoms in the preceding weeks or months. He does not use insulin. He is somewhat frustrated by the complicated course with his kidney stones otherwise does not have other acute questions or concerns. Has left focal abdominal tenderness with some CVA tenderness, no rebound/guarding Medical History: Reviewed Medications: Reviewed Surgical History: Reviewed Family history: Reviewed Allergies: Reviewed Social History: Reviewed Code Status: Full Allergies Allergy/AdvReac Type Severity Reaction Status Date / Time aspirin AdvReac Mild "upsets Unverified 07/28/23 13:12 digestive system after awhile" Home Medications Medication Instructions Recorded Confirmed Type atorvastatin 40 mg tablet 40 mg PO HS 02/12/19 07/28/23 History nitroglycerin 0.4 mg sublingual 0.4 mg sublingual Q5M PRN chest 02/12/19 07/28/23 Rx tablet pain #30 tabs metoprolol succinate 25 mg 50 mg PO QPM 05/15/22 07/28/23 History tablet,extended release 24 hr oxycodone 5 mg tablet 5 mg PO Q8H PRN pain #15 tabs 07/22/23 07/28/23 Rx acetaminophen 500 mg tablet 1,000 mg PO DIRECTED PRN Pain 07/28/23 07/28/23 History Past Med/Surg History Problem List (Updated 07/28/23 @ 15:44 by Jorje Drew MD) Hydronephrosis, left Left ureteral stone Nasal septal deviation Encounter for pre-operative examination Hyperglycemia Atrial premature complex (Acute) Degeneration of cervical intervertebral disc (Acute) Diverticulosis (Acute) Hypertension (Acute) Internal hemorrhoids (Acute) Macular edema of right eye (Acute) Malignant melanoma of skin (Acute) Neoplasm of prostate, malignant (Acute) Nephrolithiasis (Acute) Peripheral neuropathy (Acute) Ureteral stone (Acute) Prostate cancer (Chronic) Inflammatory polyps (Acute) Internal hemorrhoid (Acute) Elevated PSA (Acute) LPRD (laryngopharyngeal reflux disease) Chronic cough Sciatica Coronary artery disease Arthritis (Acute) Myocardial infarction ~2019 Medical History Arthritis Atrial premature complex follows w/ Dr Palomo Chronic cough COPD (chronic obstructive pulmonary disease) mild Coronary artery disease Degeneration of cervical intervertebral disc Diverticulosis H/O acute sinusitis H/O carpal tunnel syndrome H/o Lyme disease 2014 History of anesthesia reaction PTSD from being in [place], has to calm him down, very difficult for him to snap out of it. History of COVID-19 01/2021- no hosp; resolved Hx of bronchitis Hx: recurrent pneumonia Hypertension LPRD (laryngopharyngeal reflux disease) Macular degeneration of right eye Malignant melanoma removed from middle of back - 2016 Myocardial infarction ~2019 Nephrolithiasis Ocular migraine hx, most recent 2 yr ago. Peripheral neuropathy "bilaterally from shins down " Prostate cancer dx 2019- monitoring Retinal micro-aneurysm retina specialist routine pelon 07/07/23 - no changes. Sarcoidosis no current issues, has not "flare up in years" Sciatica Shingles dx 06/10/23 - medication and prednisone tx completed. Pt feeling better, almost healed/dark area/no seeping. Left groin / lower abdomen are and inside left bicep area. Surgical History H/O colonoscopy H/O lithotripsy & 06/06/23. Hx of cardiac catheterization ~2018- after [place]; no stents S/P bronchoscopy Family History Mother , age 92 Heart disease Father , age 91 Heart disease Sister Lymphoma Sister Endometrial cancer Migraine headache Cancer Son No problems noted. Son No problems noted. Aunt Bone cancer Aunt , "had some kind of cancer / unsure of the kind " No problems noted. Social History Smoking Status: Former smoker Tobacco Type: Cigarettes Second Hand Exposure: Yes (in the past); Do You Dip or Chew Tobacco: No; Hx Alcohol Use: Yes Hx Substance Use: No Preferred Language: South African Communication Ability: Effective Visual Impairment: Limited Hearing Ability: Hard of Hearing Soap Boiler Required: No Beliefs That Will Affect Care: None marital status: Current Living Situation: Spouse current occupational status: retired current occupation: retired from manufacturing Feels Safe at Home: Yes Assistive Devices: Hearing Aid - Bilateral Physical Exam Physical Exam: General: A&Ox3. NAD. Cooperative. HEENT: Atraumatic, normocephalic. Vision/hearing grossly intact Pulm: CTAB A&P. -wheezes, -rales, -rhonchi. Symmetrical chest rise. No increased work of breathing. No respiratory distress. Cardiac: RRR, -mrg. Radial pulses intact and symmetrical. Abdominal: LLQ/L flank TTP. No rebound/guarding., nondistended, soft. BS present. Results & Data Results & Data Vital Signs (Past 12 Hours) Vital Signs Temp Pulse Pulse Resp BP BP Pulse Ox 07/28/23 12:44 77 07/28/23 12:25 92 07/28/23 11:57 37.0 C 87 18 133/91 92 07/28/23 11:44 36.4 C L 83 16 129/79 93 O2 Del Method 07/28/23 12:44 07/28/23 12:25 Room Air 07/28/23 11:57 Room Air 07/28/23 11:44 Room Air PG Care Time/CCT Total # of Minutes Spent Total Time Spent with Patient: Total time spent is greater than 50% in coordination of care (as documented) at patient's floor/unit and/or counseling patient: Coding Level of Care Code 10400 INT INP/OBS CARE 3/75MIN Diagnoses Left ureteral stone N20.1 Hydronephrosis, left N13.30 Myocardial infarction I21.9 COPD (chronic obstructive pulmonary disease) J44.9 Shingles B02.9 Hypertension I10
[2023-07-28] MEDS ORDERED: MoRPHine SULFATE 4 MG/ML 1 ML CARP\\VIAL IV PRN (16:06)
[2023-07-28] MEDS ORDERED: ONDANSETRON INJ 2 MG/ML 2 ML VIAL IV PRN (16:06)
[2023-07-28] MEDS ORDERED: MoRPHine SULFATE 2 MG/ML CARP IV PRN (16:06)
[2023-07-28] MEDS ORDERED: ACETAMINOPHEN 325 MG TAB PO PRN (16:06)
[2023-07-28] MEDS ORDERED: KETOROLAC TROMETHAMINE 15 MG/ML VIAL IV PRN (16:10)
[2023-07-28] MEDS: PLASMA-LYTE A 1,000 ML IV SCH (17:00)
--- NOTE | 2023-07-28 18:07 | Urology Consultation ---
Date of Consultation July 28, 2023 Assessment & Plan (1) Hydronephrosis, left: (2) Left ureteral stone: (3) Retroperitoneal fluid collection: Plan I had a long discussion with Mr. Carranza and his about the findings on his CT scan. He appears to have some distal left ureteral stones as well as a retroperitoneal fluid collection which could represent a urinoma. It is difficult to determine what changed today that made his pain acutely worse. He is currently afebrile and hemodynamically stable. The stones that are most distal have a good chance of passing spontaneously, however there is a slightly larger stone more proximal which he may have some more difficulty passing. I suspect that some of his hydronephrosis is more chronic at this point then related acutely to the distal ureteral stones. He may benefit from ureteral stent placement or possibly repeat ureteroscopy. The retroperitoneal fluid collection is suspicious for possible urinoma. It is possible that this fluid accumulated as he was having surgery in the past week and there is no active ongoing fluid leak. This could be further assessed with a retrograde pyelogram or contrast-enhanced CT scan with delayed images. He may also benefit from percutaneous drainage of this fluid collection. Since he is hemodynamically stable and had coffee this morning, we will hold off intervention today unless he clinically decompensates. We will have him n.p.o. at midnight for possible ureteral stent placement and/or percutaneous drain placement to retroperitoneal fluid collection. History of Present Illness Reason for Consultation: Nephrolithiasis, possible urine leak Attending Physician: Jorje Drew MD History of Present Illness This is a 73-year-old male followed by urology for nephrolithiasis and history of prostate cancer. He recently underwent left ureteroscopy on 07/22/2023 for large, impacted distal ureteral stones. A stent was left in place at that time, then was subsequently removed on 07/24/2023. He reports that since then he has had some ongoing left-sided abdominal pain. This is located down near the bladder, not so much of the flank. It does seem to cycle depending on how full his bladder is in need to void. He denies any overt fevers or chills, although sometimes has had some sweats when the pain is really bad. He has not been having any vomiting. On 07/28/2023, the pain got worse, prompting him to present to the emergency department. Workup in the ED demonstrated a normal WBC (10.27). Hemoglobin was normal at 15.0. Creatinine was within normal range at 1.16. Urinalysis showed 1+ leukocyte esterase but negative nitrites and negative bacteria. A CT scan was performed. I independently reviewed these images from 07/28/2023. Both kidneys are in normal position and enhance symmetrically. There is hydronephrosis of the left side extending down to the distal ureter. The uro thelium on the left appears somewhat thickened. There is a nonobstructing stone in one of the upper pole calyces as well as a 6 mm nonobstructing stone in the ureter. In the very distal left ureter there appears to be a series of small stones or possibly stone debris. No significant stones or hydronephrosis on the right side. Of note, on the left there appears to be a retroperitoneal fluid collection extending from approximately the kidney down to the distal ureter. Allergies Allergy/AdvReac Type Severity Reaction Status Date / Time aspirin AdvReac Mild "upsets Unverified 07/28/23 13:12 digestive system after awhile" Home Medications Medication Instructions Recorded Confirmed Type atorvastatin 40 mg tablet 40 mg PO HS 02/12/19 07/28/23 History nitroglycerin 0.4 mg sublingual 0.4 mg sublingual Q5M PRN chest 02/12/19 07/28/23 Rx tablet pain #30 tabs metoprolol succinate 25 mg 50 mg PO QPM 05/15/22 07/28/23 History tablet,extended release 24 hr oxycodone 5 mg tablet 5 mg PO Q8H PRN pain #15 tabs 07/22/23 07/28/23 Rx acetaminophen 500 mg tablet 1,000 mg PO DIRECTED PRN Pain 07/28/23 07/28/23 History Patient History Medical History Arthritis Atrial premature complex follows w/ Dr Palomo Chronic cough COPD (chronic obstructive pulmonary disease) mild Coronary artery disease Degeneration of cervical intervertebral disc Diverticulosis H/O acute sinusitis H/O carpal tunnel syndrome H/o Lyme disease 2014 History of anesthesia reaction PTSD from being in [place], has to calm him down, very difficult for him to snap out of it. History of COVID-19 01/2021- no hosp; resolved Hx of bronchitis Hx: recurrent pneumonia Hypertension LPRD (laryngopharyngeal reflux disease) Macular degeneration of right eye Malignant melanoma removed from middle of back - 2016 Myocardial infarction ~2019 Nephrolithiasis Ocular migraine hx, most recent 2 yr ago. Peripheral neuropathy "bilaterally from shins down " Prostate cancer dx 2019- monitoring Retinal micro-aneurysm retina specialist routine pelon 07/07/23 - no changes. Sarcoidosis no current issues, has not "flare up in years" Sciatica Shingles dx 06/10/23 - medication and prednisone tx completed. Pt feeling better, almost healed/dark area/no seeping. Left groin / lower abdomen are and inside left bicep area. Surgical History H/O colonoscopy H/O lithotripsy & 06/06/23. Hx of cardiac catheterization ~2019- after [place]; no stents S/P bronchoscopy Family History Mother , age 92 Heart disease Father , age 91 Heart disease Sister Lymphoma Sister Endometrial cancer Migraine headache Cancer Son No problems noted. Son No problems noted. Aunt Bone cancer Aunt , "had some kind of cancer / unsure of the kind " No problems noted. Social History Smoking Status: Former smoker Tobacco Type: Cigarettes Second Hand Exposure: Yes (in the past); Do You Dip or Chew Tobacco: No; Hx Alcohol Use: Yes Hx Substance Use: No Preferred Language: Ecuadorean Communication Ability: Effective Visual Impairment: Limited Hearing Ability: Hard of Hearing Supervising Editor Trailer Required: No Beliefs That Will Affect Care: None marital status: Current Living Situation: Spouse current occupational status: retired current occupation: retired from manufacturing Feels Safe at Home: Yes Assistive Devices: Hearing Aid - Bilateral Review of Systems Review of Systems: 12 point review of systems negative exce pt for otherwise indicated. Physical Exam Constitutional: well developed and well nourished; no acute distress Eyes: + anicteric sclerae; pupils not irregula r Respiratory: normal respiratory effort; no respiratory distress, does not use accessory muscles and no cough Cardiovascular: well perfused Gastrointestinal (Abdomen): Soft, mild suprapubic tenderness to palpation, no flank tenderness. Musculoskeletal: Extremities: extremities normal to inspection Skin: normal turgor; no rashes and no lesions Neurologic: moves all extremities and awake Psychiatric: Orientation: alert and oriented x 3 Results & Data Vital Signs (Past 12 Hours) Vital Signs Temp Pulse Pulse Resp BP BP Pulse Ox 07/28/23 17:00 74 22 129/74 91 07/28/23 16:55 81 07/28/23 15:27 79 16 129/74 93 07/28/23 12:44 77 07/28/23 12:25 92 07/28/23 11:57 37.0 C 87 18 133/91 92 07/28/23 11:44 36.4 C L 83 16 129/79 93 O2 Del Method O2 Flow Rate 07/28/23 17:00 Nasal Cannula 07/28/23 16:55 07/28/23 15:27 Nasal Cannula 1 07/28/23 12:44 07/28/23 12:25 Room Air 07/28/23 11:57 Room Air 07/28/23 11:44 Room Air PG Care Time/CCT Total # of Minutes Spent Total Time Spent with Patient: Total time spent is greater than 50% in coordination of care (as documented) at patient's floor/unit and/or counseling patient: Coding Level of Care Code 70134 INT INP/OBS CARE 2/55MIN Diagnoses Hydronephrosis, left N13.30 Left ureteral stone N20.1 Retroperitoneal fluid collection R18.8
[2023-07-28] MEDS: METOPROLOL SUCC 50MG EXT REL TAB PO SCH (20:58)
[2023-07-28] MEDS: ATORVASTATIN 40 MG TAB PO SCH (20:58)
[2023-07-29 06:48] LABS: Basophils # (auto) 0.04 K/uL (0.00-0.20); Basophils % (auto) 0.5 %; Eosinophils # (auto) 0.04 K/uL (0.00-0.50); Eosinophils % (auto) 0.5 %; Hematocrit (blood only) 37.8 % (42.0-52.0); Hemoglobin 12.5 g/dl (14.0-18.0); Immature Granulocytes # (auto) 0.04 K/uL (0.01-0.20); Immature Granulocytes % (auto) 0.5 %; Lymphocytes # (auto) 1.47 K/uL (1.20-3.40); Lymphocytes % (auto) 18.3 %; Mean Corpuscular Hemoglobin 30.3 pg (25.0-34.0); Mean Corpuscular Hgb Conc 33.1 g/dL (32.0-36.0); Mean Corpuscular Volume 91.7 fL (80.0-100.0); Mean Platelet Volume 9.1 fL (9.4-12.4); Monocytes # (auto) 1.12 K/uL (0.11-0.59); Monocytes % (auto) 13.9 %; Neutrophils # (auto) 5.34 K/uL (1.40-6.50); Neutrophils % (auto) 66.3 %; Platelet Count 243 K/uL (130-400); RDW Coefficient of Variation 13.2 % (11.5-14.5); RDW Standard Deviation 44.9 fL (36.4-46.3); Red Blood Count 4.12 M/uL (4.70-6.10); White Blood Count 8.05 K/ul (4.8-10.8)
[2023-07-29 07:17] LABS: BUN Creatinine Ratio 18.9 (10-20); Calcium 8.3 mg/dl (8.6-10.3); Creatinine Clr Calc Pharmacy 81.4 ml/min; Est GFR (African American) 97.2 ml/min; Est GFR (Non-African American) 83.8 ml/min; Potassium 4.3 mmol/L (3.5-5.1)
--- NOTE | 2023-07-29 08:28 | Urology Progress Note ---
Date of Service July 29, 2023 Assessment & Plan (1) Left ureteral stone: (2) Hydronephrosis, left: (3) Retroperitoneal fluid collection: Plan Afebrile and hemodynamically stable Labs today show no leukocytosis and normal renal function Urine and blood cultures are pending Voiding spontaneously, continue to monitor. We discussed his CT findings including the distal left ureteral stones as well as a retroperitoneal fluid collection which could represent a urinoma. We discussed recommendation for left ureteral stent placement. Ureteral stents were discussed as well as postoperative issues and pain management. Discussed possible need for additional procedures. Risks and benefits were discussed. All questions were answered. He is agreeable to proceeding. Will plan to proceed to OR today for cystoscopy, left retrograde pyelogram, left ureteral stent placement Dr. Colunga. Risks and benefits to be reviewed with patient by Dr. Colunga. Covered with scheduled IV ceftriaxone. Keep NPO. Continue supportive care and pain management. Strain all urine. Urology will follow. Admission and Anticipated Discharge Date Admission Date: July 28, 2023 Supervising Physician Co-Signing Physician Notes Agree with above. Plan for replacement of stent today. I do not suspect we will need any additional intervention for the urinoma. Nontoxic, hemodynamically stable. I will additionally consent for ureteroscopy and laser to treat any residual stones. Subjective Pt seen at bedside today Awake, resting in bed on arrival No acute distress Has been NPO Left sided pain currently well controlled Denies f/c/n/v Voiding without issue Has been straining all urine. Notes passage of small flecks/debris. Review of Systems Constitutional: as per Subjective / HPI Genitourinary: + as per Subjective / HPI Physical Exam Constitutional: no acute distress Respiratory: no respiratory distress and no labored breathing Neurologic: moves all extremities and awake Psychiatric: A+Ox3, euthymic affect Results & Data Vital Signs (Past 12 Hours) Vital Signs Temp Pulse Resp BP Pulse Ox O2 Del Method O2 Flow Rate 07/29/23 07:47 36.9 C 72 16 123/75 92 Room Air 07/28/23 23:17 94 Nasal Cannula 2 07/28/23 23:16 88 L Room Air PG Care Time/CCT Total # of Minutes Spent Total Time Spent with Patient: Total time spent is greater than 50% in coordination of care (as documented) at patient's floor/unit and/or counseling patient: Coding Level of Care Code 79089 SUB INP/OBS CARE 235MIN Diagnoses Left ureteral stone N20.1 Hydronephrosis, left N13.30 Retroperitoneal fluid collection R18.8
--- NOTE | 2023-07-29 09:09 | Hospitalist Progress Note ---
Date of Service July 29, 2023 Assessment & Plan (1) Left ureteral stone: Plan: Left ureteral calculi, hydronephrosis, associated left multiloculated fluid collection - CTA/P shows left hydroureteronephrosis, multiple calculi fragments up to 3 mm in addition to a 7 mm distal left ureteral calculus, and a left retroperitoneal multiloculated fluid collection with minimal enhancement suggestive of a urinoma. Other than 2 small clots in the urine patient denies hematuria, and hemoglobin is 15.0 on admission, which is uptrending from his prior measurement of 14.8. Case was reviewed with urology while in the ER. Patient was recommended for cystoscopy on 07/29/2023; however if he becomes febrile/toxic/septic appearing then this can be moved up for source control. Additionally case was discussed with IR, and urinoma while transfer was transiently discussed was felt that this can be accessed by IR here if fluid is refractory to stent placement. N.p.o. IV FM CBC/BMP daily Continue Rocephin. No history of resistant organisms Hemoglobin stable Continue multimodal pain control with Tylenol first-line Toradol second-line, morphine for breakthrough Urology consulted. IR following. If signs of sepsis developing including but not limited to rigors, chills, hypotension, tachycardia, rising white count or clinical deterioration notify urology as we will need expedited source control On 07/28, Patient appears comfortable. Patient is not having any signs of sepsis. Patient will have ureteral stent placed today. Reviewed CBC and BMP. (2) Hydronephrosis, left: (3) Myocardial infarction: Plan: CAD without ischemic symptoms Patient with angina in 2018 for chest pain, that showed distal septal artery disease but nonobstructive disease in major vessels. Did not require stent and patient has been treated medically without angina since Metoprolol continued Statin continued Last echo 04/2023: EF 60-65%, no wall motion abnormalities, mild TR, trivial pericardial effusion, mild aortic root dilation 4.1 cm. No recent anginal symptoms. Patient had discontinued aspirin several years ago on/benefits discussion with his graphics software engineer. No history of stents (4) COPD (chronic obstructive pulmonary disease): Plan: No acute events No acute exacerbation/wheezing No acute change in management (5) Shingles: Plan: Herpes zoster History of shingles 06/2023 with rash atLeft upper extremity. Was treated with Valtrex and prednisone (6) Hypertension: Plan: Essential hypertension Normotensive on admission Continue metoprolol Plan DVT prophylaxis: SCDs pending surgical evaluation Diet: N.p.o. Disposition: Medical/surgical CODE STATUS: Full code Admission and Anticipated Discharge Date Admission Date: July 28, 2023 Subjective Patient report feeling slightly better in regards to pain. He is going to get a stent placement and reports he normally does not do well with the. Ad states that Urology told him he will likely stay the night. Review of Systems Review of Systems: All systems reviewed & are unremarkable except as noted in HPI & below Physical Exam Physical Exam: General: A&Ox3. NAD. Cooperative. HEENT: Atraumatic, normocephalic. Vision/hearing grossly intact Pulm: CTAB A&P. Cardiac: RRR Results & Data Results & Data Vital Signs (Past 12 Hours) Vital Signs Temp Pulse Resp BP Pulse Ox O2 Del Method O2 Flow Rate 07/29/23 07:47 36.9 C 72 16 123/75 92 Room Air 07/28/23 23:17 94 Nasal Cannula 2 07/28/23 23:16 88 L Room Air PG Care Time/CCT Total # of Minutes Spent Total Time Spent with Patient: Total time spent is greater than 50% in coordination of care (as documented) at patient's floor/unit and/or counseling patient: Coding Level of Care Code 46795 SUB INP/OBS CARE 2/35MIN Diagnoses Left ureteral stone N20.1 Hydronephrosis, left N13.30 Myocardial infarction I21.9 COPD (chronic obstructive pulmonary disease) J44.9 Shingles B02.9 Hypertension I10
--- NOTE | 2023-07-29 11:02 | Anesthesiology Consultation ---
Date of Service July 29, 2023 Assessment & Plan Chart Review Chart Review: Acceptable Risk for Surgery and Patient NOT seen in Pre Admission Testing History Surgery Operation Date: 07/29/23 14:55 Proposed Procedures p Cystoscopy, Left Retrograde Pyelogram and Stent Placement - Ba Colunga MD Height/Weight Height: 6 ft 1 in Weight: 82.6 kg Allergies Allergy/AdvReac Type Severity Reaction Status Date / Time aspirin AdvReac Mild "upsets Unverified 07/28/23 13:12 digestive system after awhile" Medications Home Medications Medication Instructions Recorded Confirmed Last Taken atorvastatin 40 mg tablet 40 mg PO HS 02/12/19 07/28/23 06/05/23 nitroglycerin 0.4 mg sublingual 0.4 mg sublingual Q5M PRN chest 02/12/19 07/28/23 Unknown tablet pain #30 tabs metoprolol succinate 25 mg 50 mg PO QPM 05/15/22 07/28/23 06/05/23 tablet,extended release 24 hr oxycodone 5 mg tablet 5 mg PO Q8H PRN pain #15 tabs 07/22/23 07/28/23 07/28/23 acetaminophen 500 mg tablet 1,000 mg PO DIRECTED PRN Pain 07/28/23 07/28/23 07/28/23 Active Medications Generic Name Dose Route Start Last Admin Trade Name Oliverq PRN Reason Stop Dose Admin Atorvastatin Calcium 40 mg 07/28/23 21:00 07/28/23 20:58 Atorvastatin 40 Mg Tab PO 08/27/23 20:59 40 mg HS BRANDO Administration Parenteral Electrolytes 1,000 mls @ 125 mls/hr 07/28/23 16:15 07/29/23 09:29 Plasma-Lyte A Ph 7.4 IV 08/27/23 16:14 125 mls/hr .Q8H BRANDO Administration Metoprolol Succinate 50 mg 07/28/23 21:00 07/28/23 20:58 Metoprolol Succ 50mg Ext Rel Tab PO 08/27/23 20:59 50 mg QPM BRANDO Administration Past Medical History Medical History Shingles dx 06/10/23 - medication and prednisone tx completed. Pt feeling better, almost healed/dark area/no seeping. Left groin / lower abdomen are and inside left bicep area. Hx: recurrent pneumonia Hx of bronchitis Sarcoidosis no current issues, has not "flare up in years" History of anesthesia reaction PTSD from being in [place], has to calm him down, very difficult for him to snap out of it. History of COVID-19 01/2021- no hosp; resolved COPD (chronic obstructive pulmonary disease) mild Retinal micro-aneurysm retina specialist routine [place] 07/07/23 - no changes. Ocular migraine hx, most recent 2 yr ago. Prostate cancer dx 2019- monitoring H/o Lyme disease 2014 H/O carpal tunnel syndrome H/O acute sinusitis Peripheral neuropathy "bilaterally from shins down " Nephrolithiasis Malignant melanoma removed from middle of back - 2015 Macular degeneration of right eye Hypertension Diverticulosis Degeneration of cervical intervertebral disc Atrial premature complex follows w/ Dr Palomo Past Family History Family History Mother , age 92 Heart disease Father , age 91 Heart disease Sister Lymphoma Sister Endometrial cancer Migraine headache Cancer Son No problems noted. Son No problems noted. Aunt Bone cancer Aunt , "had some kind of cancer / unsure of the kind " No problems noted. Past Surgical History Surgical History Hx of cardiac catheterization ~2019- after [place]; no stents S/P bronchoscopy H/O lithotripsy & 06/06/23. H/O colonoscopy Social History Smoking Status: Former smoker tobacco type: cigarettes Do You Dip or Chew Tobacco: No Smoking End Date: 50 years ago Hx Alcohol Use: Yes Alcohol type: beer and wine alcohol intake frequency: holidays/special occasions only Hx Substance Use: No substance use type: does not use Physical Exam Vital Signs Last Vital Signs Temp 36.9 C 07/29/23 07:47 Pulse 72 07/29/23 07:47 Resp 16 07/29/23 07:47 BP 123/75 07/29/23 07:47 Pulse Ox 92 07/29/23 07:47 O2 Del Method Room Air 07/29/23 07:47 O2 Flow Rate 2 07/28/23 23:17 Testing Laboratory Results 07/29/23 06:05 07/29/23 06:05 Urine Color Dark Yellow 07/28/23 12:45 Urine Appearance Clear (Clear) 07/28/23 12:45 Urine pH 5.5 (4.5-7.5) 07/28/23 12:45 Ur Specific Colome 1.029 (1.000-1.030) 07/28/23 12:45 Urine Protein 1+ (Negative) H 07/28/23 12:45 Urine Glucose (UA) Negative (Negative) 07/28/23 12:45 Urine Ketones Negative (Negative) 07/28/23 12:45 Urine Nitrite Negative (Negative) 07/28/23 12:45 Ur Leukocyte Esterase 1+ (Negative) H 07/28/23 12:45 Urine WBC (Auto) 21-50 /hpf (0-5) H 07/28/23 12:45 Urine RBC (Auto) >20 /hpf (0-2) H 07/28/23 12:45 U Hyaline Cast (Auto) 3-5 /lpf (0-2) H 07/28/23 12:45 U Epithel Cells (Auto) 0-2 /hpf (0-2) 07/28/23 12:45 Urine Bacteria (Auto) None Seen (None Seen) 07/28/23 12:45
[2023-07-29] MEDS: LACTATED RINGER'S 1,000 ML IV SCH (12:46)
[2023-07-29] MEDS ORDERED: fentaNYL citrate PF 100 MCG/2 ML VIAL IV PRN (13:00)
[2023-07-29] MEDS ORDERED: ONDANSETRON INJ 2 MG/ML 2 ML VIAL IV PRN (13:00)
[2023-07-29] MEDS ORDERED: HYDROmorphone INJ 1 MG/ML SYRINGE IV PRN (13:00)
[2023-07-29] MEDS ORDERED: ATROPINE SULFATE 0.1 MG/ML 10ML SYR IV PRN (13:00)
[2023-07-29] MEDS ORDERED: ePHEDrine sulfate 50 MG/ML AMP IV PRN (13:00)
[2023-07-29] MEDS ORDERED: fentaNYL citrate PF 100 MCG/2 ML VIAL ONE (13:02)
[2023-07-29] MEDS ORDERED: ONDANSETRON INJ 2 MG/ML 2 ML VIAL ONE (13:02)
[2023-07-29] MEDS ORDERED: MIDAZOLAM HCL 1 MG/ML 2ML VIAL ONE (13:02)
[2023-07-29] MEDS ORDERED: PROPOFOL IV EMULSION 10 MG/ML 20 ML VIAL IV ONE (13:02)
[2023-07-29] MEDS ORDERED: LIDOCAINE 2% 2 ML VIAL/AMP(20MG/ML) INFIL ONE (13:02)
[2023-07-29] MEDS ORDERED: DexMEDEtomidine HCL IV 100 MCG/ML VIAL IV ONE (13:21)
[2023-07-29] MEDS ORDERED: KETOROLAC 30 MG/ML VIAL ONE (14:19)
--- NOTE | 2023-07-29 15:04 | Operative Report ---
PG Post Operative Report Pre & Post Diagnosis Operation Date: 07/29/23 14:55 Pre-Op Diagnosis: Flank Pain, Uretolithiasis, Urinoma Post-Op Diagnosis: Flank Pain, Uretolithiasis, Urinoma I identified the patient and participated in the time-out.: Yes Procedure Operation Date: 07/29/23 14:55 Actual Procedures p Cystoscopy, Left Retrograde Pyelogram and Stent Placement(Left) - Ba Colunga MD Surgeon Ba Colunga MD Entry Level Installation Technician none Estimated Blood Loss 0 Findings Consistent with Post-Op Diagnosis Specimens None Description of Procedure The patient was identified in the preoperative holding area, appropriate informed consents were reviewed and completed and the patient was transferred to the operative suite. Upon arrival, appropriate antibiotics and anesthesia were administered and the patient was placed in dorsal lithotomy position and prepped and draped in sterile fashion. To begin the case to pass a 21 Divehi cystoscope with 30 g of visual after peer inspection revealed a healthy-appearing urethra, very large prostate and healthy bladder. There was stone debris within the dependent portion of the bladder and the left and right ureteral orifices were easily identified. I cannulated the left UO with a sensor wire and a 5 Divehi open-ended catheter. As soon as the wire passed to notable amount of stone was ejected from the UO. All of these were small fragments. I confirmed appropriate position of the wire within the kidney before exiting with the cystoscope and reentering with a semirigid ureteroscope. I guided the semirigid ureteroscope into the distal ureter and the ureter was quite edematous just above the UVJ consistent with the findings previously when he had an impacted distal ureteral calculus. There was a pile of small fragments sitting together just above this area in the dilated portion of the ureter. This is consistent with preoperative imaging of a distal ureter al calculus, however instead of a solitary calculus, it is an accumulation of small calculi resting in the dilated portion of the ureter. I initially used a laser to try to see if I could pulverized this to treat dust, however the fragments were small enough that I did not feel that this was worthwhile. I irrigated the majority of these out of the ureter and used a basket to help extract the larger fragments. I cleared this portion of the ureter entirely. The remainder of the ureter was inspected to the maximal extent possible with the scope and I saw no evidence of trauma or other irritation. I think he simply has obstruction down to the level of his previously impacted stone. A new 4.8 Divehi by 22-32 cm double-J stent was placed with a good curl in the kidney as well as the bladder. The bladder was decompressed and the case was concluded. He was reversed of anesthesia and taken to the recovery room in stable condition. I attest to the content of the Intraoperative Record and any orders documented therein. Any exceptions are noted below.
--- NOTE | 2023-07-29 15:12 | Anesthesiology Progress Note ---
Date of Service July 29, 2023 Anesthesia Post Procedure Vital Signs Vital Signs: Temp Pulse Pulse Pulse Pulse Resp BP 07/29/23 15:05 79 15 132/84 07/29/23 14:55 79 10 L 110/68 07/29/23 14:46 97.3 F L 60 10 L 110/68 07/29/23 12:38 98.4 F 82 20 07/29/23 07:47 98.4 F 72 16 123/75 07/28/23 23:17 07/28/23 23:16 07/28/23 19:10 98.1 F 79 16 07/28/23 18:04 07/28/23 17:50 98.1 F 76 16 07/28/23 17:00 74 22 07/28/23 16:55 81 07/28/23 15:27 79 16 BP Pulse Ox O2 Del Method O2 Flow Rate 07/29/23 15:05 90 Room Air 07/29/23 14:55 98 Oxymask 6 07/29/23 14:46 98 Oxymask 10 07/29/23 12:38 138/86 93 Room Air 07/29/23 07:47 92 Room Air 07/28/23 23:17 94 Nasal Cannula 2 07/28/23 23:16 88 L Room Air 07/28/23 19:10 141/83 H 95 Room Air 07/28/23 18:04 Nasal Cannula 2 07/28/23 17:50 149/87 H 95 Nasal Cannula 2 07/28/23 17:00 129/74 91 Nasal Cannula 07/28/23 16:55 07/28/23 15:27 129/74 93 Nasal Cannula 1 Pain Intensity Left Lower Abdomen: Pain Intensity: 4 Transfer of Care Handoff Completed per policy Notes Mental Status: alert / awake / arousable and participated in evaluation Patient Amnestic to Procedure: Yes Nausea / Vomiting: adequately controlled Pain: adequately controlled Airway Patency, RR, SpO2: stable & adequate BP & HR: stable & adequate Hydration State: stable & adequate Anesthetic Complications: no major complications apparent and Pt Satisfied with anesthetic care
[2023-07-29] MEDS ORDERED: KETOROLAC TROMETHAMINE 15 MG/ML VIAL IV PRN (15:52)
[2023-07-29] MEDS ORDERED: KETOROLAC 30 MG/ML VIAL IV PRN (15:52)
[2023-07-29] MEDS: cefTRIAXone SODIUM 2,000 MG/50 ML BAG IV SCH (16:06)
[2023-07-30 07:01] LABS: Basophils # (auto) 0.05 K/uL (0.00-0.20); Basophils % (auto) 0.6 %; Eosinophils # (auto) 0.08 K/uL (0.00-0.50); Hematocrit (blood only) 35.8 % (42.0-52.0); Hemoglobin 11.8 g/dl (14.0-18.0); Immature Granulocytes # (auto) 0.05 K/uL (0.01-0.20); Immature Granulocytes % (auto) 0.6 %; Lymphocytes # (auto) 1.38 K/uL (1.20-3.40); Lymphocytes % (auto) 17.7 %; Mean Corpuscular Hemoglobin 30.1 pg (25.0-34.0); Mean Corpuscular Volume 91.3 fL (80.0-100.0); Monocytes # (auto) 0.93 K/uL (0.11-0.59); Monocytes % (auto) 11.9 %; Neutrophils # (auto) 5.31 K/uL (1.40-6.50); Neutrophils % (auto) 68.2 %; Platelet Count 243 K/uL (130-400); RDW Coefficient of Variation 13.3 % (11.5-14.5); RDW Standard Deviation 44.7 fL (36.4-46.3); Red Blood Count 3.92 M/uL (4.70-6.10)
[2023-07-30 07:18] LABS: BUN Creatinine Ratio 16.7 (10-20); Calcium 8.1 mg/dl (8.6-10.3); Creatinine Clr Calc Pharmacy 71.8 ml/min; Est GFR (African American) 83.5 ml/min; Est GFR (Non-African American) 72.1 ml/min; Potassium 4.3 mmol/L (3.5-5.1)
--- NOTE | 2023-07-30 07:56 | Urology Progress Note ---
Date of Service July 30, 2023 Assessment & Plan (1) Left ureteral stone: (2) Hydronephrosis, left: (3) Retroperitoneal fluid collection: Plan POD #1 s/p Cystoscopy, Left Retrograde Pyelogram and Stent Placement Doing well, tolerating the stent with minimal bother Afebrile and hemodynamically stable Labs today show no leukocytosis and normal renal function Urine culture negative; Blood cultures prelim no growth x 24hours. On Ceftriaxone. Ok for discharge from perspective Recommend d/c with tamsulosin, PRN pyridium, PRN pain medication for stent management Will arrange outpatient follow-up with our service for stent management will sign off. Please call with any further questions or concerns. Admission and Anticipated Discharge Date Admission Date: July 28, 2023 Subjective Pt seen at bedside this AM Awake, resting in bed on arrival No acute distress Tolerating the stent with minimal bother No f/c/n/v Voiding without issue Eager to go home Review of Systems Constitutional: as per Subjective / HPI Genitourinary: + as per Subjective / HPI Physical Exam Constitutional: no acute distress Respiratory: no respiratory distress and no labored breathing Neurologic: moves all extremities and awake Psychiatric: A+Ox3, euthymic affect Results & Data Vital Signs (Past 12 Hours) Vital Signs Temp Pulse Resp BP Pulse Ox O2 Del Method 07/30/23 07:27 71 14 131/79 95 Room Air 07/30/23 03:29 37.1 C 75 16 115/68 95 Room Air 07/29/23 23:35 36.8 C 76 16 109/64 98 Room Air PG Care Time/CCT Total # of Minutes Spent Total Time Spent with Patient: Total time spent is greater than 50% in coordination of care (as documented) at patient's floor/unit and/or counseling patient: Coding Level of Care Code 85475 SUB INP/OBS CARE 2/35MIN Diagnoses Left ureteral stone N20.1 Hydronephrosis, left N13.30 Retroperitoneal fluid collection R18.8
--- NOTE | 2023-07-30 08:41 | Fluoroscopy Report ---
FL KUB CLINICAL HISTORY: Left side TECHNIQUE: 2 views were obtained with the C-arm in the OR with the above procedure. Total fluoroscopy time was 21.3 seconds. Radiation dose was 5.13 mGy. Comparison: Comparison is made to CT abdomen pelvis 07/28/2023 FINDINGS/IMPRESSION: Intraoperative images were obtained of left lithotripsy and stent placement. In the final images, the stent is in satisfactory position. Please correlate with intraoperative fluoroscopy and operative report. ACT 112: Negative or not required by law. Electronically signed by: Mayco Graves M.D. 07/30/2023 8:39 AM
--- NOTE | 2023-07-30 12:45 | Discharge Summary ---
Date of Service July 30, 2023 Admission HPI Per Admitting Provider Bertha is a 73-year-old male with a recent history of cystoscopy/uronephrostomy/retrograde pyelogram and left laser stone destruction and extraction 07/22/2023, shingles, essential hypertension, CAD without angina/stents who presents to the ER 6 days after left stone management/stent placement with subsequent removal with worsening left lower quadrant pain. Patient has been weaning narcotics but has continued to have persistent pain in his left lower quadrant. He has not had fever, chills but has had sweats. No chest pain/chest pressure/shortness of breath. ER evaluation does not show leukocytosis, and patient does not have an STAN with admitting creatinine of 1.16. Urine is with blood/leukocyte esterase. Chuck is seen at the bedside. He reports that he has had intermittent pain since his stent/stone procedure, but this has not resolved and he is worse in the last 24 hours. He denies fevers but notes when he have strong spasm of pain he does get sweaty. He has not any chest pain, chest pressure, or shortness of breath. He does have a distant history of NSTEMI in 2018 for which she had a cardiac catheterization which showed clear main cardiac vessels and a distal small vessel occlusion for which she was medically managed on a statin, metoprolol and aspirin. He followed up with his fireworks inspector and after several years on shared decision making was felt to be safe to discontinue his aspirin. He has not had any anginal symptoms in the preceding weeks or months. He does not use insulin. He is somewhat frustrated by the complicated course with his kidney stones otherwise does not have other acute questions or concerns. Has left focal abdominal tenderness with some CVA tenderness, no rebound/guarding Medical History: Reviewed Medications: Reviewed Surgical History: Reviewed Family history: Reviewed Allergies: Reviewed Social History: Reviewed Code Status: Full Principal Diagnosis left nephrolithiasis Discharge Exam General: A&Ox3. NAD. Cooperative. HEENT: Atraumatic, normocephalic. Vision/hearing grossly intact Pulm: CTAB A&P. Cardiac: RRR Discharge Data Allergies Allergy/AdvReac Type Severity Reaction Status Date / Time aspirin AdvReac Mild "upsets Unverified 07/28/23 13:12 digestive system after awhile" Consultations 07/28/23 15:10 ED Decision to Admit Stat 07/28/23 17:50 Consult Urology Routine Procedures Performed Operation Date: 07/29/23 14:55 Actual Procedures p Cystoscopy, Left Retrograde Pyelogram and Stent Placement(Left) - Ba Colunga MD Ordered Studies 07/28/23 12:08 CT abd pelvis IV con only Stat 07/29/23 09:00 FL KUB Routine Hospital Course (1) Left ureteral stone: Left ureteral calculi, hydronephrosis, associated left multiloculated fluid collection - CTA/P shows left hydroureteronephrosis, multiple calculi fragments up to 3 mm in addition to a 7 mm distal left ureteral calculus, and a left retroperitoneal multiloculated fluid collection with minimal enhancement suggestive of a urinoma. Other than 2 small clots in the urine patient denies hematuria, and hemoglobin is 15.0 on admission, which is uptrending from his prior measurement of 14.8. Case was reviewed with urology while in the ER. Patient was recommended for cystoscopy on 07/29/2023; however if he becomes febrile/toxic/septic appearing then this can be moved up for source control. Additionally case was discussed with IR, and urinoma while transfer was transiently discussed was felt that this can be accessed by IR here if fluid is refractory to stent placement. Consulted Urology: S/P Cystoscopy, Left Retrograde Pyelogram and Stent Placement(Left) Patient with no signs of sepsis, has not required narcotics. Will not discharge on antibiotics as UA and culture did not show bacteria. Followup as noted below. (2) Hydronephrosis, left: (3) Myocardial infarction: CAD without ischemic symptoms Patient with angina in 2018 for chest pain, that showed distal septal artery disease but nonobstructive disease in major vessels. Did not require stent and patient has been treated medically without angina since Metoprolol continued Statin continued Last echo 04/2023: EF 60-65%, no wall motion abnormalities, mild TR, trivial pericardial effusion, mild aortic root dilation 4.1 cm. No recent anginal symptoms. Patient had discontinued aspirin several years ago on/benefits discussion with his fireworks inspector. No history of stents (4) COPD (chronic obstructive pulmonary disease): No acute events No acute exacerbation/wheezing No acute change in management (5) Shingles: Herpes zoster History of shingles 06/2023 with rash atLeft upper extremity. Was treated with Valtrex and prednisone (6) Hypertension: Essential hypertension Normotensive on admission Continue metoprolol Total Time Total Time Spent Total Time Spent (In Minutes): 32 Discharge Plan Discharge Items Patient Disposition: Home - Self-Care Reason For Visit: FLANK PAIN, URETOLITHIASIS, ?URINOMA Discharge Diagnosis: flank pain Activity: Resume your previous activity Non-emergency contact: Primary Care Provider Call non-emergency contact if: you have any medication questions Follow-up/Referrals: Meliton Galloway MD [Primary Care Provider] - 08/04/23 10:00 am Ba Colunga MD [Physician] - 08/04/23 2:30 pm Diet: Regular Addtl Attending Provider Instructions: followup with PCP in 1-2 weeks Addtl [employer] Associate Provider Instructions: Please call the urology office at [phone] with any questions, concerns or need to reschedule appointments for any reason. We are happy to assist you. You are scheduled for follow-up in the urology office with Dr. Colunga for stent removal on 08/04/2023 at 2:30 PM. Please have a KUB xray prior to your visit. While you have a ureteral stent in place: Some discomfort is normal. Certain movements may trigger pain or a feeling that you need to urinate. You may also feel mild soreness or pressure before or during urination. These symptoms should go away a few days after the stent is removed. Your urine may be slightly pink or red. This is due to bleeding caused by minor irritation from the stent. This may happen on and off while you have the stent, it is not harmful and is to be expected. Medication to help minimize discomfort or bladder spasms, or to prevent infection may be prescribed. Take this as directed. Drink plenty of fluids to help flush out your urinary tract. When to [place] [facility] [place] [place] [phone]: Your urine contains heavy blood clots or you are unable to urinate You are constantly leaking urine Fever of 101F or higher, chills, nausea, or vomiting Your pain is not relieved with medication The end of the stent comes out of your urethra Pending Studies at Discharge: No Stand-Alone Forms: My [facility] [employer], Pain - Opioid Pain Management, Smoking Cessation Medications and DC Order Prescriptions: New acetaminophen 325 mg Tablet 650 mg PO Q4H PRNQty: 100 0RF tamsulosin 0.4 mg capsule 0.4 mg PO HS Qty: 30 0RF phenazopyridine [Pyridium] 200 mg tablet 200 mg PO Q8H PRN (Reason: urinary pain) Qty: 9 0RF Continued atorvastatin 40 mg tablet 40 mg PO HS nitroglycerin 0.4 mg tablet, sublingual 0.4 mg SL Q5M PRN (Reason: chest pain) Qty: 30 3RF Patient Comments: never had to use it Rx Instructions: until response; do not exceed 3 doses per episode metoprolol succinate 25 mg tablet extended release 24 hr 50 mg PO QPM acetaminophen 500 mg Tablet 1,000 mg PO DIRECTED PRN (Reason: Pain) oxycodone 5 mg tablet 5 mg PO Q8H PRN (Reason: pain) Qty: 15 0RF Rx Instructions: has 2 left Discharge Orders: Discharge Order (Routine); Ordered 07/30/23 Ordered By: Maged Warren/Other Patient Handouts: Having a Ureteral Stent Admission Data Admit Date/Time: 07/28/23 16:06 Attending Provider: Maged Polanco Admit Provider: Jorje Drew Primary Care Provider: Meliton Galloway Other Providers: Jorje Drew; Joel Humphries Other Interventions: Discharge Summary Assessment (RN) Last Done: 07/30/23 13:02 Coding Level of Care Code 98008 INP/OBS DISCH >30 MIN Diagnoses Left ureteral stone N20.1 Hydronephrosis, left N13.30 Myocardial infarction I21.9 COPD (chronic obstructive pulmonary disease) J44.9 Shingles B02.9 Hypertension I10
== END 2023-07-30 13:44 | disposition home or self-care (01) | DRG 661 ==
LOC: ED 11:35 → SUATTDRO 16:06 → 3W 16:06
DX: Z87.891 Personal history of nicotine dependence; J44.9 Chronic obstructive pulmonary disease, unspecified; I25.2 Old myocardial infarction; N28.89 Other specified disorders of kidney and ureter; I25.10 Atherosclerotic heart disease of native coronary artery without angina pectoris; I10 Essential (primary) hypertension; N13.2 Hydronephrosis with renal and ureteral calculous obstruction; C61 Malignant neoplasm of prostate